=== PATIENT | male | born 1975 | race Caucasian/White ===

== ENCOUNTER 2017-10-20 13:01 | Inpatient (IN) | payer OTHER ==
[2017-10-20 17:46] VITALS: BMI 42.0
--- NOTE | 2017-10-20 23:12 | HP ---
COWS - Scale Resting Pulse: 1= DC 81-100 Sweatin=Flushed/Facial Moisture Restless Observation: 1= Difficult to Sit Still Pupil Size: 1= Pupils >than Normal Bone or Joint Aches: 4=Acute Joint/Muscle Pain Runny Nose/ Eye Tearin= Runny Nose/Eyes GI Upset > 30mins: 1= Stomach Cramp Tremor Observation: 2= Slight Tremor Visible Yawning Observation: 1= 1-2x During Session Anxiety or Irritability: 4=Extreme Anxiety Goose Flesh Skin: 0=Smooth Skin COWS Score: 19 CIWA Score - CIWA Score Nausea/Vomitin Muscle Tremors: 4-Moderate,w/Arms Extend Anxiety: 4-Mod. Anxious/Guarded Agitation: 2 Paroxysmal Sweats: 3 Orientation: 1-Uncertain about Date Tacttile Disturbances: 0-None Auditory Disturbances: 0-None Visual Disturbances: 0-None Headache: 2-Mild CIWA-Ar Total Score: 19 Admission ROS BHS - HPI Chief Complaint: Withdrawal symptoms Allergies/Adverse Reactions: Allergies Allergy/AdvReac Type Severity Reaction Status Date / Time No Known Allergies Allergy Verified 10/20/17 22:48 History of Present Illness: 42 years old male with a long history of opioid and alcohol dependence is seeking admission to detox. Patient has been in previous detox and reports insignificant period of sobriety. He has medical history of seizure, heart murmur, cellulitis and depression. Patient has a history of suicide attempt but denies suicidal ideation at this time. Patient is on methadone 100mg oral at [facility]. Dose is to be verified by nurse. Exam Limitations: Physical Impairment (lower extremities cellulitis) - Ebola screening Have you traveled outside of the country in the last 21 days: No Have you had contact with anyone from an Ebola affected area: No Have you been sick,other than usual withdrawal symptoms: No Do you have a fever: No - Review of Systems Constitutional: Chills, Loss of Appetite, Malaise, Night Sweats, Weakness EENT: reports: Nose Congestion, Sinus Pressure Respiratory: reports: Cough (greenish phlegm) Cardiac: reports: No Symptoms Reported GI: reports: Poor Appetite, Poor Fluid Intake, Abdominal cramping : reports: No Symptoms Reported Musculoskeletal: reports: Back Pain, Joint Pain, Muscle Pain, Muscle Weakness, Neck Pain Integumentary: reports: Bruising, Dryness, Flushing, Sweating Neuro: reports: Headache, Seizure, Tingling, Tremors Endocrine: reports: Flushing, Increased Thirst, Increased Urine Hematology: reports: No Symptoms Reported Psychiatric: reports: Agitated, Anxious, Depressed Other Systems: Reviewed and Negative Patient History - Patient Medical History Hx Anemia: Yes Hx Asthma: No Hx Chronic Obstructive Pulmonary Disease (COPD): No Hx Cancer: No Hx Cardiac Disorders: Yes (Heart murmur) Hx Congestive Heart Failure: No Hx Hypertension: No Hx Hypercholesterolemia: No HX Cerebrovascular Accident: No Hx Seizures: Yes Hx Diabetes: No Hx Gastrointestinal Disorders: No Hx Liver Disease: No Hx Genitourinary Disorders: No Hx Sexually Transmitted Disorders: No Hx Renal Disease (ESRD): No Hx Thyroid Disease: No Hx Human Immunodeficiency Virus (HIV): No Hx Hepatitis C: No Hx Depression: Yes Hx Suicide Attempt: Yes (Attempted suicide at 28 and 31 years. Denies suicidal ideation at this time) Hx Bipolar Disorder: No Hx Schizophrenia: No Other Medical History: ODD and ADD - Patient Surgical History Past Surgical History: Yes Hx Neurologic Surgery: No Hx Cataract Extraction: No Hx Cardiac Surgery: No Hx Lung Surgery: No Hx Abdominal Surgery: No Hx Appendectomy: No Hx Cholecystectomy: No Hx Genitourinary Surgery: No Hx Orthopedic Surgery: Yes (LT.MIDDLE FINGER TORN LIGAMENT) Anesthesia Reaction: No - PPD History Previous Implant?: Yes Documented Results: Negative w/o proof Implanted On Prior R Admission?: No PPD to be Administered?: Yes - Reproductive History Patient is a Female of Child Bearing Age (11 -55 yrs old): No (MALE) - Smoking Cessation Smoking history: Current every day smoker Have you smoked in the past 12 months: Yes Aproximately how many cigarettes per day: 30 Hx Chewing Tobacco Use: No Initiated information on smoking cessation: Yes 'Breaking Loose' booklet given: 10/20/17 - Substance & Tx. History Hx Alcohol Use: Yes Hx Substance Use: Yes Substance Use Type: Alcohol, Heroin Hx Substance Use Treatment: Yes ([facility]) - Substances Abused Alcohol Route: Oral Frequency: Daily Amount used: 3 PINTS Age of first use: 27 Date of Last Use: 10/20/17 Alprazolam (Xanax) Route: Oral Frequency: Daily Amount used: 3-4 STICKS Age of first use: 40 Date of Last Use: 10/19/17 Heroin Route: Injection Frequency: Daily Amount used: 7 BAGS Age of first use: 23 Date of Last Use: 10/20/17 Family Disease History - Family Disease History Family Disease History: Heart Disease: Grandparent (STROKE, EMPHYSEMA- ) , CA: Mother (LUNG, BLOOD CLOT- ), Respiratory: Grandparent, Other: Mother Admission Physical Exam [facility] - Vital Signs Vital Signs: Vital Signs - 24 hr 10/20/17 17:44 Temperature 97.8 F Pulse Rate 91 H Respiratory 18 Rate Blood Pressure 139/80 - Physical General Appearance: Yes: Moderate Distress, Alcohol on Breath, Tremorous, Irritable, Sweating, Anxious HEENTM: Yes: Nasal Congestion, Rhinorrhea Respiratory: Yes: Lungs Clear, Normal Breath Sounds, No Respiratory Distress Neck: Yes: Supple Breast: Yes: Breast Exam Deferred Cardiology: Yes: Regular Rhythm, Regular Rate, S1, S2, Tachycardia Abdominal: Yes: Normal Bowel Sounds, Soft, Protuberent Genitourinary: Yes: Within Normal Limits Musculoskeletal: Yes: Back pain, Joint Stiffness, Muscle Pain, Muscle weakness Extremities: Yes: Tremors, Other (Lower exremities swelling) Neurological: Yes: Alert, Normal Mood/Affect Integumentary: Yes: Dry, Track More[place] (NECK, BOTH HANDS AND LOWER EXTREMITIES) Lymphatic: Yes: Within Normal Limits - Diagnostic (1) Opioid dependence with withdrawal Current Visit: Yes Status: Chronic (2) Sedative, hypnotic or anxiolytic dependence with withdrawal, uncomplicated Current Visit: Yes Status: Chronic (3) Alcohol dependence with uncomplicated withdrawal Current Visit: Yes Status: Chronic (4) Methadone maintenance therapy patient Current Visit: Yes Status: Chronic (5) Heart murmur Current Visit: Yes Status: Chronic (6) Depression Current Visit: Yes Status: Chronic (7) Cellulitis Current Visit: Yes Status: Chronic (8) Seizure Current Visit: Yes Status: Chronic (9) Nicotine dependence Current Visit: Yes Status: Chronic Cleared for Admission [facility] - Detox or Rehab [facility] Level of Care: Medically Managed Detox Regimen/Protocol: Valium [facility] Breath Alcohol Content Breath Alcohol Content: 0.186 Urine Drug Screen - Results Drug Screen Negative: No Urine Drug Screen Results: OPI-Opiates, BZO-Benzodiazepines, MTD-Methadone
[2017-10-20] MEDS ORDERED: NICOTINE POLACRILEX 2 MG GUM BC PRN (23:39)
[2017-10-20] MEDS ORDERED: MAGNESIUM HYDROX 2400MG/30ML ORAL SUSPENSION 30 ML CUP PO PRN (23:39)
[2017-10-20] MEDS ORDERED: guaiFENesin/D-METHORPHAN HB 10 ML UNIT-DOSE CUPS PO PRN (23:39)
[2017-10-20] MEDS ORDERED: P-EPHED 60MG/TRIPROLIDI 2.5MG TABLET PO PRN (23:39)
[2017-10-20] MEDS ORDERED: MAGNESIUM CITRATE 300 ML BOTTLE PO PRN (23:39)
[2017-10-20] MEDS ORDERED: diazePAM 5 MG TABLET PO ONE (23:39)
[2017-10-20] MEDS ORDERED: ACETAMINOPHEN 325 MG TABLET (FP) PO PRN (23:39)
[2017-10-20] MEDS ORDERED: IBUPROFEN 400 MG TABLET (FP) PO PRN (23:39)
[2017-10-20] MEDS ORDERED: LOPERAMIDE HCL 2 MG CAPSULE PO PRN (23:39)
[2017-10-20] MEDS ORDERED: MAG HYDROX/AL HYDROX/SIMETH 30 ML UNIT-DOSE CUP PO PRN (23:39)
[2017-10-20] MEDS ORDERED: MENTHOL/PHENOL 1 EACH UD MM PRN (23:39)
[2017-10-21] MEDS: diazePAM 5 MG TABLET PO SCH ×4 (00:27→21:51)
[2017-10-21] MEDS ORDERED: [UNRECOGNIZED DRUG - CODE] PO (07:45)
[2017-10-21] MEDS ORDERED: METHADONE HCL 10 MG TABLET PO SCH (07:45)
[2017-10-21] MEDS ORDERED: METHADONE HCL 10 MG TABLET ONE (07:50)
[2017-10-21] MEDS ORDERED: METHADONE HCL 40 MG DISPERSABLE TABLET ONE (07:51)
[2017-10-21] MEDS: METHADONE 80 MG, METHADONE 20 MG PO SCH (07:51)
[2017-10-21] MEDS: diazePAM 5 MG TABLET PO PRN ×2 (07:51→12:07)
[2017-10-21 10:49] LABS: ALBUMIN 2.9 g/dl (3.4-5.0); ALK PHOS 98 U/L (45-117); ANION GAP 9 (8-16); BILIRUBIN,TOTAL 0.7 mg/dL (0.2-1.0); BLOOD UREA NITROGEN 6 mg/dL (7-18); CALCIUM 8.3 mg/dL (8.5-10.1); CHLORIDE 99 mmol/L (98-107); CO2 33 mmol/L (21-32); CREATININE 0.8 mg/dL (0.7-1.3); GLUCOSE,RANDOM 77 mg/dL (74-106); POTASSIUM 3.3 mmol/L (3.5-5.1); SGOT/AST 34 U/L (15-37); SGPT/ALT 28 U/L (12-78); SODIUM 141 mmol/L (136-145); TOT PROT 6.6 g/dl (6.4-8.2)
[2017-10-21 10:51] LABS: HEMATOCRIT 35.8 % (35.4-49); MCH 32.6 pg (25.7-33.7); MCHC 33.4 g/dl (32.0-35.9); MEAN CELL VOLUME 97.4 fl (80-96); MEAN PLT VOLUME 7.4 fl (7.5-11.1); PLATELET COUNT 165 K/MM3 (134-434); RBC 3.68 M/mm3 (4.00-5.60); WHITE BLOOD COUNT 3.1 K/mm3 (4.0-10.0)
[2017-10-21] MEDS: FUROSEMIDE 20 MG TABLET (FP) PO SCH (10:56)
[2017-10-21] MEDS: PRENATAL VITAMINS W/ FOLIC ACID TABLET (FP) PO SCH (10:57)
[2017-10-21] MEDS: NICOTINE 14 MG/24 HOURS TOPICAL PATCH TD SCH (10:57)
--- NOTE | 2017-10-21 11:37 | PN ---
[facility] CIWA - CIWA Score Nausea/Vomitin-No Nausea/No Vomiting Muscle Tremors: 4-Moderate,w/Arms Extend Anxiety: 4-Mod. Anxious/Guarded Agitation: 4-Moderately Restless Paroxysmal Sweats: 1-Minimal Palms Moist Orientation: 0-Oriented Tacttile Disturbances: 3-Moderate Itch/Numb/Burn Auditory Disturbances: 0-None Visual Disturbances: 0-None Headache: 0-None Present CIWA-Ar Total Score: 16 S Progress Note (SOAP) Subjective: ANXIETY,IRRITABILITY,SWEATS,FATIGUE,INTERMITTEMT SLEEP. PT IS ON METHADONE MAINTENANCE TREATMENT. Objective: 10/21/17 11:40 Vital Signs Temperature 98.2 F 10/21/17 06:04 Pulse Rate 69 10/21/17 06:04 Respiratory Rate 18 10/21/17 06:04 Blood Pressure 114/65 10/21/17 06:04 O2 Sat by Pulse Oximetry (%) Laboratory Last Values WBC 3.1 K/mm3 (4.0-10.0) L 10/21/17 07:00 RBC 3.68 M/mm3 (4.00-5.60) L 10/21/17 07:00 Hgb 12.0 GM/dL (11.7-16.9) 10/21/17 07:00 Hct 35.8 % (35.4-49) 10/21/17 07:00 MCV 97.4 fl (80-96) H 10/21/17 07:00 MCH 32.6 pg (25.7-33.7) 10/21/17 07:00 MCHC 33.4 g/dl (32.0-35.9) 10/21/17 07:00 RDW 13.0 % (11.9-15.9) 10/21/17 07:00 Plt Count 165 K/MM3 (134-434) 10/21/17 07:00 MPV 7.4 fl (7.5-11.1) L 10/21/17 07:00 Sodium 141 mmol/L (136-145) 10/21/17 07:00 Potassium 3.3 mmol/L (3.5-5.1) L 10/21/17 07:00 Chloride 99 mmol/L (98-107) 10/21/17 07:00 Carbon Dioxide 33 mmol/L (21-32) H 10/21/17 07:00 Anion Gap 9 (8-16) 10/21/17 07:00 BUN 6 mg/dL (7-18) L 10/21/17 07:00 Creatinine 0.8 mg/dL (0.7-1.3) 10/21/17 07:00 Creat Clearance w eGFR > 60 (>60) 10/21/17 07:00 Random Glucose 77 mg/dL (74-106) 10/21/17 07:00 Calcium 8.3 mg/dL (8.5-10.1) L 10/21/17 07:00 Total Bilirubin 0.7 mg/dL (0.2-1.0) 10/21/17 07:00 AST 34 U/L (15-37) 10/21/17 07:00 ALT 28 U/L (12-78) 10/21/17 07:00 Alkaline Phosphatase 98 U/L (45-117) 10/21/17 07:00 Total Protein 6.6 g/dl (6.4-8.2) 10/21/17 07:00 Albumin 2.9 g/dl (3.4-5.0) L 10/21/17 07:00 K+ =3.3 Assessment: 10/21/17 11:40 WITHDRAWAL SX HYPOKALEMIA Plan: CONTINUE DETOX
[2017-10-21] MEDS ORDERED: POTASSIUM CHLORIDE ORAL LIQUID 20 MEQ/15 ML PO ONE (11:45)
--- NOTE | 2017-10-21 12:36 | EKG ---
Test Reason : Blood Pressure : / mmHG Vent. Rate : 079 BPM Atrial Rate : 079 BPM P-R Int : 168 ms QRS Dur : 110 ms QT Int : 402 ms P-R-T Axes : 027 019 035 degrees QTc Int : 460 ms NORMAL SINUS RHYTHM INCOMPLETE RIGHT BUNDLE BRANCH BLOCK BORDERLINE ECG NO PREVIOUS ECGS AVAILABLE Confirmed by SHEILA ALSTON MD ([id number]) on 10/21/2017 12:35:50 PM Referred By: Confirmed By:SHEILA ALSTON MD
--- NOTE | 2017-10-21 12:38 | CONSULT ---
[facility] Psychiatric Consult - Data Date of interview: 10/21/17 Admission source: [facility] Identifying data: Pt. is a 42 year old male, single, without kids, unemployed and homeless. This is patient's first admission to [facility]. Pt. admitted to for Alcohol, benzodiazepines, and heroin dependence. Substance Abuse History: Following information confirmed with Mr. Cruz: Smoking Cessation. Smoking history: Current every day smoker. Have you smoked in the past 12 months: Yes. Aproximately how many cigarettes per day: 30. Hx Chewing Tobacco Use: No. Initiated information on smoking cessation: Yes. ' Breaking Loose' booklet given: 10/20/17. - Substance & Tx. History. Hx Alcohol Use: Yes. Hx Substance Use: Yes. Substance Use Type: Alcohol, Heroin. Hx Substance Use Treatment: Yes ([facility] - Substances Abused. Alcohol. Route: Oral. Frequency: Daily. Amount used: 3 PINTS. Age of first use: 27. Date of Last Use: 10/20/17. Alprazolam (Xanax). Route: Oral. Frequency: Daily. Amount used: 3-4 STICKS. Age of first use: 40. Date of Last Use: 10/19/17. Heroin. Route: Injection. Frequency: Daily. Amount used: 7 BAGS. Age of first use: 23. Date of Last Use: 10/20/17 Medical History: Anemia, Heart murmur and seizures. Psychiatric History: Pt. denies h/o psychiatric hospitalizations. Reports OPC as an adolescent and most recently three years ago. States he has been diagnosed with ADD and MDD. Also self reports a h/o anxiety. Reports taking wellbutrin and prozac over three years ago but stated the medications were not effective. Pt. reports two suicide attempts by overdose at age 27 and 34. Pt. currently denies suicidal and homicidal ideation. Physical/Sexual Abuse/Trauma History: Denies. Mental Status Exam - Mental Status Exam Alert and Oriented to: Time, Place, Person Cognitive Function: Good Patient Appearance: Well Groomed Mood: Sad Affect: Mood Congruent Patient Behavior: Cooperative Speech Pattern: Appropriate Voice Loudness: Normal Thought Process: Goal Oriented Thought Disorder: Not Present Hallucinations: Denies Suicidal Ideation: Denies Homicidal Ideation: Denies Insight/Judgement: Poor Sleep: Poorly Appetite: Fair Muscle strength/Tone: Normal Gait/Station: Normal Psychiatric Findings - Problem List (Waldo 1, 2,3) (1) Sedative, hypnotic or anxiolytic dependence with withdrawal, uncomplicated Current Visit: Yes Status: Acute (2) Alcohol dependence with uncomplicated withdrawal Current Visit: Yes Status: Acute (3) Methadone maintenance therapy patient Current Visit: Yes Status: Chronic (4) Nicotine dependence Current Visit: Yes Status: Chronic Qualifiers: Nicotine product type: cigarettes Substance use status: in withdrawal Qualified Code(s): F17.213 - Nicotine dependence, cigarettes, with withdrawal (5) Opioid dependence with withdrawal Current Visit: Yes Status: Acute (6) MDD (major depressive disorder) Current Visit: No Status: Chronic Comment: Self reports. - Initial Treatment Plan Initial Treatment Plan: Psychoeducation provided. Detoxification in progress. Ambien 10mg qhs prn ordered for insomnia + Vistaril 50mg q6hs ordered for anxiety. Benefits and side effects (sleep walking caused by ambien) discussed. Verbal consent given. Will continue to monitor.
[2017-10-21] MEDS ORDERED: hydrOXYzine PAMOATE 50 MG CAPSULE (FP) PO PRN (18:13)
[2017-10-21] MEDS: POTASSIUM CHLORIDE ORAL LIQUID 20 MEQ/15 ML PO SCH (21:51)
[2017-10-21] MEDS: ZOLPIDEM TARTRATE 10 MG TABLET (PARK CARE ONLY) PO PRN (21:51)
[2017-10-21] MEDS: THIAMINE HCL 100 MG TABLET (FP) PO SCH (21:52)
[2017-10-22] MEDS ORDERED: METHADONE HCL 40 MG DISPERSABLE TABLET ONE (04:28)
[2017-10-22] MEDS ORDERED: METHADONE HCL 10 MG TABLET ONE (04:28)
[2017-10-22] MEDS: diazePAM 5 MG TABLET PO PRN ×2 (05:58→13:31)
[2017-10-22] MEDS: METHADONE 80 MG, METHADONE 20 MG PO SCH (05:58)
[2017-10-22 08:26] LABS: URINE APPEARANCE CLEAR; URINE BILIRUBIN NEGATIVE (NEGATIVE); URINE BLOOD NEGATIVE (NEGATIVE); URINE COLOR LTYELLOW; URINE GLUCOSE (UA) NEGATIVE (NEGATIVE); URINE KETONE NEGATIVE (NEGATIVE); URINE LEUK ESTERASE NEGATIVE (NEGATIVE); URINE NITRITE NEGATIVE (NEGATIVE); URINE PROTEIN NEGATIVE (NEGATIVE); URINE UROBILINOGEN NEGATIVE mg/dL (0.2-1.0)
[2017-10-22] MEDS: POTASSIUM CHLORIDE ORAL LIQUID 20 MEQ/15 ML PO SCH ×2 (10:57→21:43)
[2017-10-22] MEDS: diazePAM 5 MG TABLET PO SCH ×2 (10:58→21:43)
[2017-10-22] MEDS: FUROSEMIDE 20 MG TABLET (FP) PO SCH (10:58)
[2017-10-22] MEDS: NICOTINE 14 MG/24 HOURS TOPICAL PATCH TD SCH (10:59)
[2017-10-22] MEDS: PRENATAL VITAMINS W/ FOLIC ACID TABLET (FP) PO SCH (10:59)
--- NOTE | 2017-10-22 13:41 | PN ---
[facility] CIWA - CIWA Score Nausea/Vomitin-No Nausea/No Vomiting Muscle Tremors: 4-Moderate,w/Arms Extend Anxiety: 4-Mod. Anxious/Guarded Agitation: 4-Moderately Restless Paroxysmal Sweats: 1-Minimal Palms Moist Orientation: 0-Oriented Tacttile Disturbances: 3-Moderate Itch/Numb/Burn Auditory Disturbances: 0-None Visual Disturbances: 0-None Headache: 0-None Present CIWA-Ar Total Score: 16 BHS Progress Note (SOAP) Subjective: ANXIETY,SWEATS,BODY ACHE,FATIGUE. Objective: 10/22/17 13:40 Vital Signs Temperature 96.9 F L 10/22/17 09:46 Pulse Rate 55 L 10/22/17 09:46 Respiratory Rate 18 10/22/17 09:46 Blood Pressure 132/83 10/22/17 09:46 O2 Sat by Pulse Oximetry (%) Laboratory Last Values WBC 3.1 K/mm3 (4.0-10.0) L 10/21/17 07:00 RBC 3.68 M/mm3 (4.00-5.60) L 10/21/17 07:00 Hgb 12.0 GM/dL (11.7-16.9) 10/21/17 07:00 Hct 35.8 % (35.4-49) 10/21/17 07:00 MCV 97.4 fl (80-96) H 10/21/17 07:00 MCH 32.6 pg (25.7-33.7) 10/21/17 07:00 MCHC 33.4 g/dl (32.0-35.9) 10/21/17 07:00 RDW 13.0 % (11.9-15.9) 10/21/17 07:00 Plt Count 165 K/MM3 (134-434) 10/21/17 07:00 MPV 7.4 fl (7.5-11.1) L 10/21/17 07:00 Sodium 141 mmol/L (136-145) 10/21/17 07:00 Potassium 3.3 mmol/L (3.5-5.1) L 10/21/17 07:00 Chloride 99 mmol/L (98-107) 10/21/17 07:00 Carbon Dioxide 33 mmol/L (21-32) H 10/21/17 07:00 Anion Gap 9 (8-16) 10/21/17 07:00 BUN 6 mg/dL (7-18) L 10/21/17 07:00 Creatinine 0.8 mg/dL (0.7-1.3) 10/21/17 07:00 Creat Clearance w eGFR > 60 (>60) 10/21/17 07:00 Random Glucose 77 mg/dL (74-106) 10/21/17 07:00 Calcium 8.3 mg/dL (8.5-10.1) L 10/21/17 07:00 Total Bilirubin 0.7 mg/dL (0.2-1.0) 10/21/17 07:00 AST 34 U/L (15-37) 10/21/17 07:00 ALT 28 U/L (12-78) 10/21/17 07:00 Alkaline Phosphatase 98 U/L (45-117) 10/21/17 07:00 Total Protein 6.6 g/dl (6.4-8.2) 10/21/17 07:00 Albumin 2.9 g/dl (3.4-5.0) L 10/21/17 07:00 Urine Color Ltyellow 10/20/17 23:51 Urine Appearance Clear 10/20/17 23:51 Urine pH 6.0 (5.0-8.0) 10/20/17 23:51 Ur Specific [place] 1.003 (1.001-1.035) 10/20/17 23:51 Urine Protein Negative (NEGATIVE) 10/20/17 23:51 Urine Glucose (UA) Negative (NEGATIVE) 10/20/17 23:51 Urine Ketones Negative (NEGATIVE) 10/20/17 23:51 Urine Blood Negative (NEGATIVE) 10/20/17 23:51 Urine Nitrite Negative (NEGATIVE) 10/20/17 23:51 Urine Bilirubin Negative (NEGATIVE) 10/20/17 23:51 Urine Urobilinogen Negative mg/dL (0.2-1.0) 10/20/17 23:51 Ur Leukocyte Esterase Negative (NEGATIVE) 10/20/17 23:51 RPR Titer Nonreactive (NONREACTIVE) 10/21/17 07:00 Hepatitis C Antibody 0.1 s/co ratio (0.0-0.9) 10/21/17 07:00 K+ SUPPLEMENTED. Assessment: 10/22/17 13:41 WITHDRAWAL SX Plan: CONTINUE DETOX
[2017-10-22] MEDS: THIAMINE HCL 100 MG TABLET (FP) PO SCH (21:43)
[2017-10-22] MEDS: ZOLPIDEM TARTRATE 10 MG TABLET (PARK CARE ONLY) PO PRN (21:45)
[2017-10-23] MEDS ORDERED: METHADONE HCL 10 MG TABLET ONE (04:21)
[2017-10-23] MEDS ORDERED: METHADONE HCL 40 MG DISPERSABLE TABLET ONE (04:21)
[2017-10-23] MEDS: METHADONE 80 MG, METHADONE 20 MG PO SCH (05:45)
[2017-10-23] MEDS: diazePAM 5 MG TABLET PO SCH ×2 (10:29→22:54)
[2017-10-23] MEDS: FUROSEMIDE 20 MG TABLET (FP) PO SCH (10:29)
[2017-10-23] MEDS: PRENATAL VITAMINS W/ FOLIC ACID TABLET (FP) PO SCH (10:29)
[2017-10-23] MEDS: POTASSIUM CHLORIDE ORAL LIQUID 20 MEQ/15 ML PO SCH ×2 (10:30→22:53)
[2017-10-23] MEDS: NICOTINE 14 MG/24 HOURS TOPICAL PATCH TD SCH (11:30)
[2017-10-23] MEDS: diazePAM 5 MG TABLET PO PRN ×2 (12:40→18:03)
--- NOTE | 2017-10-23 16:06 | PN ---
BHS Progress Note (SOAP) Subjective: Tremors, Sweating. Objective: PT. A & O X 2 (UNCERTAIN ABOUT CURRENT DAY/ DATE). NO ACUTE DISTRESS. 10/23/17 16:04 Vital Signs Temperature 96.6 F L 10/23/17 13:12 Pulse Rate 83 10/23/17 13:12 Respiratory Rate 18 10/23/17 13:12 Blood Pressure 134/98 10/23/17 13:12 O2 Sat by Pulse Oximetry (%) Laboratory Tests 10/20/17 10/21/17 10/21/17 23:51 07:00 07:00 WBC 3.1 L RBC 3.68 L Hgb 12.0 Hct 35.8 MCV 97.4 H MCH 32.6 MCHC 33.4 RDW 13.0 Plt Count 165 MPV 7.4 L Sodium 141 Potassium 3.3 L Chloride 99 Carbon Dioxide 33 H Anion Gap 9 BUN 6 L Creatinine 0.8 Creat Clearance w eGFR > 60 Random Glucose 77 Calcium 8.3 L Total Bilirubin 0.7 AST 34 ALT 28 Alkaline Phosphatase 98 Total Protein 6.6 Albumin 2.9 L Urine Color Ltyellow Urine Appearance Clear Urine pH 6.0 Ur Specific [place] 1.003 Urine Protein Negative Urine Glucose (UA) Negative Urine Ketones Negative Urine Blood Negative Urine Nitrite Negative Urine Bilirubin Negative Urine Urobilinogen Negative Ur Leukocyte Esterase Negative RPR Titer Hepatitis C Antibody 10/21/17 10/21/17 07:00 07:00 WBC RBC Hgb Hct MCV MCH MCHC RDW Plt Count MPV Sodium Potassium Chloride Carbon Dioxide Anion Gap BUN Creatinine Creat Clearance w eGFR Random Glucose Calcium Total Bilirubin AST ALT Alkaline Phosphatase Total Protein Albumin Urine Color Urine Appearance Urine pH Ur Specific [place] Urine Protein Urine Glucose (UA) Urine Ketones Urine Blood Urine Nitrite Urine Bilirubin Urine Urobilinogen Ur Leukocyte Esterase RPR Titer Nonreactive Hepatitis C Antibody 0.1 LABS NOTED. Assessment: 10/23/17 16:04 WITHDRAWAL SYMPTOMS. HYPOKALEMIA. 10/23/17 16:06 Plan: CONTINUE DETOX.
[2017-10-23] MEDS: THIAMINE HCL 100 MG TABLET (FP) PO SCH (22:54)
[2017-10-23] MEDS: ZOLPIDEM TARTRATE 10 MG TABLET (PARK CARE ONLY) PO PRN (22:58)
[2017-10-24] MEDS ORDERED: METHADONE HCL 10 MG TABLET ONE (04:24)
[2017-10-24] MEDS ORDERED: METHADONE HCL 40 MG DISPERSABLE TABLET ONE (04:24)
[2017-10-24] MEDS: METHADONE 80 MG, METHADONE 20 MG PO SCH (05:25)
[2017-10-24 06:19] VITALS: BP 109/63; PULSE 71; TEMP 98.6
[2017-10-24] MEDS: PRENATAL VITAMINS W/ FOLIC ACID TABLET (FP) PO SCH (09:32)
[2017-10-24] MEDS: FUROSEMIDE 20 MG TABLET (FP) PO SCH (09:32)
[2017-10-24] MEDS ORDERED: diazePAM 5 MG TABLET PO SCH (10:00)
--- NOTE | 2017-10-24 13:06 | DS ---
[facility] Detox Discharge Summary Admission Date: 10/20/17 Discharge Date: 10/24/17 - History Present History: Alcohol Dependence, Sedative Dependence, MMTP Pertinent Past History: Anemia Seizure disorder - Physical Exam Results Vital Signs: Vital Signs Temperature 98.6 F 10/24/17 06:19 Pulse Rate 71 10/24/17 06:19 Respiratory Rate 20 10/24/17 06:19 Blood Pressure 109/63 10/24/17 06:19 O2 Sat by Pulse Oximetry (%) Pertinent Admission Physical Exam Findings: Withdrawal symptoms Laboratory Tests 10/20/17 10/21/17 10/21/17 23:51 07:00 07:00 WBC 3.1 L RBC 3.68 L Hgb 12.0 Hct 35.8 MCV 97.4 H MCH 32.6 MCHC 33.4 RDW 13.0 Plt Count 165 MPV 7.4 L Sodium 141 Potassium 3.3 L Chloride 99 Carbon Dioxide 33 H Anion Gap 9 BUN 6 L Creatinine 0.8 Creat Clearance w eGFR > 60 Random Glucose 77 Calcium 8.3 L Total Bilirubin 0.7 AST 34 ALT 28 Alkaline Phosphatase 98 Total Protein 6.6 Albumin 2.9 L Urine Color Ltyellow Urine Appearance Clear Urine pH 6.0 Ur Specific [place] 1.003 Urine Protein Negative Urine Glucose (UA) Negative Urine Ketones Negative Urine Blood Negative Urine Nitrite Negative Urine Bilirubin Negative Urine Urobilinogen Negative Ur Leukocyte Esterase Negative RPR Titer Hepatitis C Antibody 10/21/17 10/21/17 07:00 07:00 WBC RBC Hgb Hct MCV MCH MCHC RDW Plt Count MPV Sodium Potassium Chloride Carbon Dioxide Anion Gap BUN Creatinine Creat Clearance w eGFR Random Glucose Calcium Total Bilirubin AST ALT Alkaline Phosphatase Total Protein Albumin Urine Color Urine Appearance Urine pH Ur Specific [place] Urine Protein Urine Glucose (UA) Urine Ketones Urine Blood Urine Nitrite Urine Bilirubin Urine Urobilinogen Ur Leukocyte Esterase RPR Titer Nonreactive Hepatitis C Antibody 0.1 Labs noted: K 3.3 (replenished with K Dur) - Treatment Hospital Course: Detox Protocol Followed, Detoxed Safely, Responded well, Discharged Condition Good - Medication Discharge Medications: Ambulatory Orders Furosemide [Lasix] 20 mg PO DAILY 10/20/17 - Diagnosis (1) Alcohol dependence with uncomplicated withdrawal Status: Acute (2) Hypokalemia Status: Acute (3) Sedative, hypnotic or anxiolytic dependence with withdrawal, uncomplicated Status: Acute (4) MDD (major depressive disorder) Status: Chronic (5) Nicotine dependence Status: Chronic Qualifiers: Nicotine product type: cigarettes Substance use status: in withdrawal Qualified Code(s): F17.213 - Nicotine dependence, cigarettes, with withdrawal (6) Seizure Status: Chronic (7) Methadone maintenance therapy patient Status: Chronic - AMA Did Patient Leave Against Medical Advice: No (F/U with PCP within 1-2 weeks)
== END 2017-10-24 09:25 | disposition home or self-care (01) | DRG 773 ==
LOC: YASAS 13:01 → Y3N 22:09
PROVIDERS: ADMIT Internal Medicine; ATTEND Internal Medicine
PROC: HZ2ZZZZ Detoxification Services for Substance Abuse Treatment (ICD-10-PCS; principal; 2017-10-20)
DX: F10.230 Alcohol dependence with withdrawal, uncomplicated (principal); F11.20 Opioid dependence, uncomplicated; F13.230 Sedative, hypnotic or anxiolytic dependence with withdrawal, uncomplicated; F17.213 Nicotine dependence, cigarettes, with withdrawal; F33.9 Major depressive disorder, recurrent, unspecified; E87.6 Hypokalemia; L03.90 Cellulitis, unspecified; R00.0 Tachycardia, unspecified; R01.1 Cardiac murmur, unspecified; D64.9 Anemia, unspecified; Z86.69 Personal history of other diseases of the nervous system and sense organs; Z91.5 Personal history of self-harm
CPT/HCPCS: 36415; 80053; 81003; 85027; 86593; 86803; 93005; 93010

== ENCOUNTER 2018-03-05 13:19 | Inpatient (IN) | payer OTHER ==
[2018-03-05 19:34] VITALS: BMI 37.8
--- NOTE | 2018-03-05 21:25 | HP ---
CIWA Score - CIWA Score Nausea/Vomitin-No Nausea/No Vomiting Muscle Tremors: 4-Moderate,w/Arms Extend Anxiety: 4-Mod. Anxious/Guarded Agitation: 4-Moderately Restless Paroxysmal Sweats: 5 Orientation: 3-Disoriented Date>2 days Tacttile Disturbances: 0-None Auditory Disturbances: 0-None Visual Disturbances: 0-None Headache: 0-None Present CIWA-Ar Total Score: 20 Admission ROS S - HPI Chief Complaint: C/O WITHDRWAL SX'S. SEEKING DETOX FOR WITHDRAWAL SX'S. Allergies/Adverse Reactions: Allergies Allergy/AdvReac Type Severity Reaction Status Date / Time No Known Allergies Allergy Verified 03/05/18 21:34 History of Present Illness: 42 Y.O. MALE WITH LONG HX/O ALCOHOL AND BENZO, OPIOID DEPENDENCE. KNOWN TO THIS PROGRAM. CLIENT LAST HERE. CLIENT IS ON METHADONE MAINTENANCE 110MG. PRESENTS WITH SEALED TAKE HOME BOTTLE FOR 03/06/2018 BUT UNABLE TO MAKE OUT THE DOSE DUE TO THE LABEL BEING SMEARED. D/W CLIENT UNABLE TO DOSE METHADONE UNTIL DOSE IS VERIFIED BY HIS PROGRAM. SUPERVISOR [employer] AND [employer] ATTEMPTED TO CALL # ON HIS BOTTLE BUT THE ARE ONLY OPEN M-F. CLIENT UPSET ABOUT WAITING ALL DAY AND C/O WORSENING WITHDRAWAL SX'S. D/W CLIENT MAY RETURN TOMORROW AFTER TAKING HIS TAKE HOME. CLIENT REQUEST TO BE ADMITTED DESPITE INABILITY TO DOSE HIM WITH METHADONE. D/W CLIENT I WILL DOSE HIM TOMORROW WITH METHADONE 30 MG PENDING HIS DOSE VERIFICATION ON Wednesday. CLIENT VERBALIZED UNDERSTANDING. HE IS SELF REFERRED. DENIES ANY SIGNIFICANT PERIOD OF CLEAN TIME. REPORTS HX/O DRUG INDUCED SEIZURES, DRUG O.D. X6,. ATTEMPTED SUICIDE 15 YEARS AGO VIA TAKING PILLS. PRESENTLY DENIES SI/HI. PMHX: DENIES PSYCH: DEPRESSION, ADD, Exam Limitations: No Limitations - Ebola screening Have you traveled outside of the country in the last 21 days: No (N) Have you had contact with anyone from an Ebola affected area: No Have you been sick,other than usual withdrawal symptoms: No Do you have a fever: No - Review of Systems Constitutional: Chills, Loss of Appetite, Night Sweats, Changes in sleep EENT: reports: No Symptoms Reported Respiratory: reports: Shortness of Breath Cardiac: reports: Edema (BLE) GI: reports: Poor Fluid Intake : reports: No Symptoms Reported Musculoskeletal: reports: No Symptoms Reported Integumentary: reports: Flushing, Sweating Neuro: reports: Seizure Endocrine: reports: No Symptoms Reported Hematology: reports: No Symptoms Reported Psychiatric: reports: Anxious, Depressed Other Systems: Reviewed and Negative Patient History - Patient Medical History Hx Anemia: Yes Hx Asthma: No Hx Chronic Obstructive Pulmonary Disease (COPD): No Hx Cancer: No Hx Cardiac Disorders: Yes (Heart murmur) Hx Congestive Heart Failure: No Hx Hypertension: No Hx Hypercholesterolemia: No HX Cerebrovascular Accident: No Hx Seizures: Yes Hx Diabetes: No Hx Gastrointestinal Disorders: No Hx Liver Disease: No Hx Genitourinary Disorders: No Hx Sexually Transmitted Disorders: No Hx Renal Disease (ESRD): No Hx Thyroid Disease: No Hx Human Immunodeficiency Virus (HIV): No Hx Hepatitis C: No Hx Depression: Yes Hx Suicide Attempt: Yes (Attempted suicide at 28 and 31 years. Denies suicidal ideation at this time) Hx Bipolar Disorder: No Hx Schizophrenia: No - Patient Surgical History Past Surgical History: Yes Hx Neurologic Surgery: No Hx Cataract Extraction: No Hx Cardiac Surgery: No Hx Lung Surgery: No Hx Breast Surgery: No Hx Breast Biopsy: No Hx Abdominal Surgery: No Hx Appendectomy: No Hx Cholecystectomy: No Hx Genitourinary Surgery: No Hx Section: No Hx Orthopedic Surgery: Yes (LT.MIDDLE FINGER TORN LIGAMENT) Anesthesia Reaction: No - PPD History Previous Implant?: Yes Documented Results: Negative w/o proof Implanted On Prior [facility] Admission?: No Date: 10/23/17 Results: 0MM PPD to be Administered?: No - Smoking Cessation Smoking history: Current every day smoker Have you smoked in the past 12 months: Yes Aproximately how many cigarettes per day: 30 Hx Chewing Tobacco Use: No Initiated information on smoking cessation: Yes 'Breaking Loose' booklet given: 03/05/18 - Substance & Tx. History Hx Alcohol Use: Yes Hx Substance Use: Yes Substance Use Type: Alcohol, Tranquilizers (XANAX) Hx Substance Use Treatment: Yes ([facility]) - Substances Abused RUM Route: Oral Frequency: Daily Amount used: 1-2 LITER Age of first use: 29 Date of Last Use: 03/05/18 XANAX Route: Oral Frequency: 3-6 times per week Amount used: 6MG Age of first use: 39 Date of Last Use: 03/04/18 Family Disease History - Family Disease History Family Disease History: Heart Disease: Grandparent (STROKE, EMPHYSEMA- ) , CA: Mother (LUNG, BLOOD CLOT- ), Respiratory: Grandparent, Other: Mother Admission Physical Exam S - Vital Signs Vital Signs: Vital Signs - 24 hr 03/05/18 19:30 Temperature 97.7 F Pulse Rate 74 Respiratory 18 Rate Blood Pressure 111/67 - Physical General Appearance: Yes: Disheveled, Mild Distress, Intoxicated, Tremorous, Sweating, Anxious, Other (MALODUROUS) HEENTM: Yes: Normal ENT Inspection, Normocephalic, Normal Voice, ARTIE, Other ( DENTURES TONGUE FISSURES) Respiratory: Yes: Chest Non-Tender, Lungs Clear, Normal Breath Sounds, No Respiratory Distress, No Accessory Muscle Use Neck: Yes: No masses,lesions,Nodules, Supple, Trachea in good position Breast: Yes: Breast Exam Deferred Cardiology: Yes: Regular Rhythm, Regular Rate, S1, S2 Abdominal: Yes: Normal Bowel Sounds, Non Tender, Soft, Protuberent Genitourinary: Yes: Within Normal Limits Back: Yes: Normal Inspection Musculoskeletal: Yes: full range of Motion, Gait Steady Extremities: Yes: Normal Range of Motion, Non-Tender, Tremors, Other (DIRTY NAILS) Neurological: Yes: Alert, Disoriented (TO DATE) Integumentary: Yes: Warm, Track [place], Other (DIRTY) Lymphatic: Yes: Within Normal Limits - Diagnostic (1) Alcohol dependence with uncomplicated withdrawal Current Visit: Yes Status: Acute (2) Sedative, hypnotic or anxiolytic dependence with withdrawal, uncomplicated Current Visit: Yes Status: Acute (3) Depression Current Visit: Yes Status: Chronic Qualifiers: Depression Type: unspecified Qualified Code(s): F32.9 - Major depressive disorder, single episode, unspecified (4) Heart murmur Current Visit: Yes Status: Chronic (5) MDD (major depressive disorder) Current Visit: Yes Status: Suspected Comment: Self reports. (6) Methadone maintenance therapy patient Current Visit: Yes Status: Chronic (7) Nicotine dependence Current Visit: Yes Status: Chronic Qualifiers: Nicotine product type: cigarettes Substance use status: in withdrawal Qualified Code(s): F17.213 - Nicotine dependence, cigarettes, with withdrawal (8) Seizure Current Visit: Yes Status: Suspected Cleared for Admission [facility] - Detox or Rehab [facility] Level of Care: Medically Managed Detox Regimen/Protocol: Valium Claeared for Rehab Admission: No [facility] Breath Alcohol Content Breath Alcohol Content: 0.148 Urine Drug Screen - Results Drug Screen Negative: No Urine Drug Screen Results: OPI-Opiates, BZO-Benzodiazepines, MTD-Methadone, OXY- Oxycodone
[2018-03-05] MEDS ORDERED: NICOTINE POLACRILEX 4 MG GUM BC PRN (21:31)
[2018-03-05] MEDS ORDERED: LOPERAMIDE HCL 2 MG CAPSULE PO PRN (21:31)
[2018-03-05] MEDS ORDERED: MAGNESIUM CITRATE 300 ML BOTTLE PO PRN (21:31)
[2018-03-05] MEDS ORDERED: IBUPROFEN 400 MG TABLET (FP) PO PRN (21:31)
[2018-03-05] MEDS ORDERED: MENTHOL/PHENOL 1 EACH UD MM PRN (21:31)
[2018-03-05] MEDS ORDERED: P-EPHED 60MG/TRIPROLIDI 2.5MG TABLET PO PRN (21:31)
[2018-03-05] MEDS ORDERED: MAGNESIUM HYDROX 2400MG/30ML ORAL SUSPENSION 30 ML CUP PO PRN (21:31)
[2018-03-05] MEDS ORDERED: guaiFENesin/D-METHORPHAN HB 10 ML UNIT-DOSE CUPS PO PRN (21:31)
[2018-03-05] MEDS ORDERED: MAG HYDROX/AL HYDROX/SIMETH 30 ML UNIT-DOSE CUP PO PRN (21:31)
[2018-03-05] MEDS ORDERED: ACETAMINOPHEN 325 MG TABLET (FP) PO PRN (21:31)
[2018-03-05] MEDS ORDERED: diazePAM 5 MG TABLET PO ONE (21:45)
[2018-03-05] MEDS ORDERED: MELATONIN 5 MG TABLETS PO PRN (22:00)
[2018-03-05] MEDS: diazePAM 5 MG TABLET PO SCH (22:49)
[2018-03-05] MEDS: hydrOXYzine PAMOATE 50 MG CAPSULE (FP) PO PRN (22:53)
[2018-03-05] MEDS: THIAMINE HCL 100 MG TABLET (FP) PO SCH (22:53)
[2018-03-06] MEDS ORDERED: METHADONE HCL 10 MG TABLET PO ONE (06:00)
[2018-03-06] MEDS: diazePAM 5 MG TABLET PO SCH ×3 (06:22→22:27)
--- NOTE | 2018-03-06 08:09 | CONSULT ---
[facility] Psychiatric Consult - Data Date of interview: 03/06/18 Admission source: Self-referred Identifying data: Mr Cruz is a 42 years old single male, unemployed on public assistance, homeless seeking detox treatment for alcohol and benzodiazepine Substance Abuse History: Reports history of alcohol and xanax use. Refer to addiction counselor's summary for further information Medical History: Significant for heart murmur, a history of benxodiazepine- related seizure, treatment for anemia and orthosurgery for repair of torn ligament left middle finger. Smokes cigarettes 1.5 ppd Psychiatric History: Reports being diagnosed with ADHD and MDD at age 15 but told fha underwriter that his parents was against him taking psychotropic medication. However 5 years ago he was prescribed Wellbutrin and Prozac which he took for only a few months. Claims they were ineffective. Denies previous psychiatric hospitalization but reports 2 suicidal attempts by overdose at age 27 and 34. At present, reports feeling anxious and sleeping poorly Physical/Sexual Abuse/Trauma History: Denies history of emotional, physical or sexual abuse as well as DV relationship Additional Comment: Reports history of 5-6 previous misdemeanor arrests. Denies being on probation Mental Status Exam - Mental Status Exam Alert and Oriented to: Time, Place, Person Cognitive Function: Fair Patient Appearance: Well Groomed Mood: Anxious Patient Behavior: Cooperative Speech Pattern: Clear Voice Loudness: Normal Thought Process: Intact Thought Disorder: Not Present Hallucinations: Denies Suicidal Ideation: Denies Homicidal Ideation: Denies Insight/Judgement: Poor Sleep: Poorly Appetite: Poor Muscle strength/Tone: Normal Gait/Station: Normal Psychiatric Findings - Problem List ([place] 1, 2,3) (1) ADHD (attention deficit hyperactivity disorder) Current Visit: Yes Status: Chronic (2) Substance-induced anxiety disorder Current Visit: Yes Status: Acute (3) Substance-induced sleep disorder Current Visit: Yes Status: Acute (4) Alcohol dependence with uncomplicated withdrawal Current Visit: Yes Status: Acute (5) Sedative, hypnotic or anxiolytic dependence with withdrawal, uncomplicated Current Visit: Yes Status: Acute (6) Opioid dependence on agonist therapy Current Visit: Yes Status: Chronic (7) Nicotine dependence Current Visit: Yes Status: Chronic Qualifiers: Nicotine product type: cigarettes Substance use status: in withdrawal Qualified Code(s): F17.213 - Nicotine dependence, cigarettes, with withdrawal (8) Heart murmur Current Visit: Yes Status: Chronic (9) Seizure Current Visit: Yes Status: Suspected - Initial Treatment Plan Initial Treatment Plan: 1) Start Ambien 10 mg po HS prn for insomnia. 2) Continue inpatient detoxification
[2018-03-06] MEDS: PRENATAL VITAMINS W/ FOLIC ACID TABLET (FP) PO SCH (10:15)
[2018-03-06] MEDS: diazePAM 5 MG TABLET PO PRN ×2 (10:15→19:58)
[2018-03-06] MEDS: NICOTINE 21 MG/24 HOURS TOPICAL PATCH TD SCH (10:15)
[2018-03-06 10:54] LABS: HEMATOCRIT 41.9 % (35.4-49); HEMOGLOBIN 14.3 GM/dL (11.7-16.9); MCH 32.9 pg (25.7-33.7); MCHC 34.2 g/dl (32.0-35.9); MEAN CELL VOLUME 96.3 fl (80-96); MEAN PLT VOLUME 7.9 fl (7.5-11.1); PLATELET COUNT 176 K/MM3 (134-434); RBC 4.35 M/mm3 (4.00-5.60); WHITE BLOOD COUNT 2.6 K/mm3 (4.0-10.0)
[2018-03-06 10:56] LABS: URINE APPEARANCE CLEAR; URINE BILIRUBIN NEGATIVE (<2.0 mg/dL); URINE BLOOD NEGATIVE (NEGATIVE); URINE COLOR AMBER; URINE GLUCOSE (UA) NEGATIVE (NEGATIVE); URINE KETONE NEGATIVE (NEGATIVE); URINE LEUK ESTERASE NEGATIVE (NEGATIVE); URINE NITRITE NEGATIVE (NEGATIVE); URINE PROTEIN NEGATIVE (NEGATIVE); URINE UROBILINOGEN 4.0 E.U/dl mg/dL (0.2-1.0)
[2018-03-06 11:03] LABS: ALBUMIN 3.2 g/dl (3.4-5.0); ALK PHOS 158 U/L (45-117); ANION GAP 8 (8-16); BILIRUBIN,TOTAL 0.8 mg/dL (0.2-1.0); BLOOD UREA NITROGEN 8 mg/dL (7-18); CALCIUM 8.4 mg/dL (8.5-10.1); CHLORIDE 103 mmol/L (98-107); CO2 30 mmol/L (21-32); CREATININE 0.8 mg/dL (0.7-1.3); GLUCOSE,RANDOM 90 mg/dL (74-106); POTASSIUM 3.4 mmol/L (3.5-5.1); SGOT/AST 62 U/L (15-37); SGPT/ALT 56 U/L (12-78); SODIUM 141 mmol/L (136-145); TOT PROT 6.8 g/dl (6.4-8.2)
--- NOTE | 2018-03-06 16:17 | PN ---
S CIWA - CIWA Score Nausea/Vomitin Muscle Tremors: 3 Anxiety: 3 Agitation: 1-Slight > Activity Paroxysmal Sweats: 3 Orientation: 2-Disoriented Date<2 days Tacttile Disturbances: 0-None Auditory Disturbances: 0-None Visual Disturbances: 2-Mild Sensitivity Headache: 0-None Present CIWA-Ar Total Score: 17 BHS Progress Note (SOAP) Subjective: Fatigue, Nausea, Sweating, Tremors. Objective: PATIENT A & O X 2 (UNCERTAIN ABOUT CURRENT DAY / DATE). PATIENT OBSERVED AMBULATING ON UNIT. NO ACUTE DISTRESS. 03/06/18 16:14 Vital Signs Temperature 98.0 F 03/06/18 13:31 Pulse Rate 68 03/06/18 15:49 Respiratory Rate 18 03/06/18 14:00 Blood Pressure 129/78 03/06/18 13:31 O2 Sat by Pulse Oximetry (%) Laboratory Tests 03/06/18 03/06/18 03/06/18 07:40 07:40 07:40 WBC 2.6 L RBC 4.35 Hgb 14.3 D Hct 41.9 D MCV 96.3 H MCH 32.9 MCHC 34.2 RDW 13.0 Plt Count 176 MPV 7.9 Sodium 141 Potassium 3.4 L Chloride 103 Carbon Dioxide 30 Anion Gap 8 BUN 8 D Creatinine 0.8 Creat Clearance w eGFR > 60 Random Glucose 90 Calcium 8.4 L Total Bilirubin 0.8 AST 62 H D ALT 56 D Alkaline Phosphatase 158 H D Total Protein 6.8 Albumin 3.2 L Urine Color Urine Appearance Urine pH Ur Specific [place] Urine Protein Urine Glucose (UA) Urine Ketones Urine Blood Urine Nitrite Urine Bilirubin Urine Urobilinogen Ur Leukocyte Esterase RPR Titer Nonreactive 03/06/18 08:15 WBC RBC Hgb Hct MCV MCH MCHC RDW Plt Count MPV Sodium Potassium Chloride Carbon Dioxide Anion Gap BUN Creatinine Creat Clearance w eGFR Random Glucose Calcium Total Bilirubin AST ALT Alkaline Phosphatase Total Protein Albumin Urine Color Nga Urine Appearance Clear Urine pH 5.0 Ur Specific [place] 1.012 Urine Protein Negative Urine Glucose (UA) Negative Urine Ketones Negative Urine Blood Negative Urine Nitrite Negative Urine Bilirubin Negative Urine Urobilinogen 4.0 e.u/dl Ur Leukocyte Esterase Negative RPR Titer LABS NOTED. Assessment: 03/06/18 16:14 WITHDRAWAL SYMPTOMS. HYPOKALEMIA. 03/06/18 16:16 Plan: CONTINUE DETOX. K-DUR, 20 MEQ PO BID. INCREASE DAILY PO FLUID INTAKE.
[2018-03-06] MEDS: POTASSIUM CHLORIDE TABS 20 MEQ TABLET.ER (FP) PO SCH (17:48)
[2018-03-06] MEDS: hydrOXYzine PAMOATE 50 MG CAPSULE (FP) PO PRN (19:57)
[2018-03-06] MEDS: THIAMINE HCL 100 MG TABLET (FP) PO SCH (22:27)
[2018-03-06] MEDS: ZOLPIDEM TARTRATE 10 MG TABLET (PARK CARE ONLY) PO PRN (22:27)
--- NOTE | 2018-03-06 22:41 | EKG ---
Test Reason : Blood Pressure : / mmHG Vent. Rate : 074 BPM Atrial Rate : 074 BPM P-R Int : 180 ms QRS Dur : 104 ms QT Int : 414 ms P-R-T Axes : 053 000 036 degrees QTc Int : 459 ms NORMAL SINUS RHYTHM NORMAL ECG WHEN COMPARED WITH ECG OF 21-OCT-2017 01:34, NO SIGNIFICANT CHANGE WAS FOUND Confirmed by VAISHALI HEATON MD ([id number]) on 03/06/2018 10:41:12 PM Referred By: Confirmed By:VAISHALI HEATON MD
[2018-03-07] MEDS ORDERED: METHADONE HCL 10 MG TABLET PO ONE (09:06)
[2018-03-07] MEDS ORDERED: METHADONE 80 MG, METHADONE 30 MG PO ONE (09:30)
[2018-03-07] MEDS ORDERED: METHADONE HCL 10 MG TABLET ONE (10:00)
[2018-03-07] MEDS ORDERED: METHADONE HCL 40 MG DISPERSABLE TABLET ONE (10:01)
[2018-03-07] MEDS: PRENATAL VITAMINS W/ FOLIC ACID TABLET (FP) PO SCH (10:15)
[2018-03-07] MEDS: diazePAM 5 MG TABLET PO SCH ×2 (10:15→22:05)
[2018-03-07] MEDS: POTASSIUM CHLORIDE TABS 20 MEQ TABLET.ER (FP) PO SCH ×2 (10:15→17:36)
[2018-03-07] MEDS: NICOTINE 21 MG/24 HOURS TOPICAL PATCH TD SCH (10:15)
--- NOTE | 2018-03-07 10:37 | PN ---
[facility] CIWA - CIWA Score Nausea/Vomitin-No Nausea/No Vomiting Muscle Tremors: 4-Moderate,w/Arms Extend Anxiety: 4-Mod. Anxious/Guarded Agitation: 4-Moderately Restless Paroxysmal Sweats: 1-Minimal Palms Moist Orientation: 0-Oriented Tacttile Disturbances: 0-None Auditory Disturbances: 0-None Visual Disturbances: 0-None Headache: 0-None Present CIWA-Ar Total Score: 13 S Progress Note (SOAP) Subjective: ANXIETY,IRRITABILITY. PT ON METHADONE MAINTENANCE AND WANTS HIS METHADONE. PT STATES HE IS ANXIOUS BECAUSE WAS GIVEN 30 MG METHADONE OVER THE WEEKEND PENDING VERIFICATION TODAY. DOSE HAS BEEN VERIFIED AND ORDERED. Objective: 03/07/18 10:35 Vital Signs 03/07/18 03/07/18 03/07/18 03:30 06:43 09:06 Temperature 98.6 F 98.4 F Pulse Rate 53 L 44 L Respiratory 18 18 18 Rate Blood Pressure 123/85 118/71 Laboratory Tests 03/06/18 03/06/18 03/06/18 07:40 07:40 07:40 WBC 2.6 L RBC 4.35 Hgb 14.3 D Hct 41.9 D MCV 96.3 H MCH 32.9 MCHC 34.2 RDW 13.0 Plt Count 176 MPV 7.9 Sodium 141 Potassium 3.4 L Chloride 103 Carbon Dioxide 30 Anion Gap 8 BUN 8 D Creatinine 0.8 Creat Clearance w eGFR > 60 Random Glucose 90 Calcium 8.4 L Total Bilirubin 0.8 AST 62 H D ALT 56 D Alkaline Phosphatase 158 H D Total Protein 6.8 Albumin 3.2 L Urine Color Urine Appearance Urine pH Ur Specific [place] Urine Protein Urine Glucose (UA) Urine Ketones Urine Blood Urine Nitrite Urine Bilirubin Urine Urobilinogen Ur Leukocyte Esterase RPR Titer Nonreactive 03/06/18 08:15 WBC RBC Hgb Hct MCV MCH MCHC RDW Plt Count MPV Sodium Potassium Chloride Carbon Dioxide Anion Gap BUN Creatinine Creat Clearance w eGFR Random Glucose Calcium Total Bilirubin AST ALT Alkaline Phosphatase Total Protein Albumin Urine Color Nga Urine Appearance Clear Urine pH 5.0 Ur Specific [place] 1.012 Urine Protein Negative Urine Glucose (UA) Negative Urine Ketones Negative Urine Blood Negative Urine Nitrite Negative Urine Bilirubin Negative Urine Urobilinogen 4.0 e.u/dl Ur Leukocyte Esterase Negative RPR Titer 03/07/18 10:36 Assessment: 03/07/18 10:36 WITHDRAWAL SX Plan: CONTINUE DETOX INCREASE PO FLUIDS.
[2018-03-07] MEDS: diazePAM 5 MG TABLET PO PRN (15:19)
[2018-03-07] MEDS: THIAMINE HCL 100 MG TABLET (FP) PO SCH (22:04)
[2018-03-07] MEDS: ZOLPIDEM TARTRATE 10 MG TABLET (PARK CARE ONLY) PO PRN (22:05)
[2018-03-08] MEDS: diazePAM 5 MG TABLET PO PRN ×2 (02:33→18:06)
[2018-03-08] MEDS ORDERED: METHADONE HCL 10 MG TABLET ONE (04:29)
[2018-03-08] MEDS ORDERED: METHADONE HCL 40 MG DISPERSABLE TABLET ONE (04:29)
[2018-03-08] MEDS ORDERED: METHADONE HCL 10 MG TABLET PO SCH (06:00)
[2018-03-08] MEDS: METHADONE 80 MG, METHADONE 30 MG PO SCH (06:02)
[2018-03-08] MEDS: PRENATAL VITAMINS W/ FOLIC ACID TABLET (FP) PO SCH (10:17)
[2018-03-08] MEDS: POTASSIUM CHLORIDE TABS 20 MEQ TABLET.ER (FP) PO SCH ×2 (10:17→17:16)
[2018-03-08] MEDS: NICOTINE 21 MG/24 HOURS TOPICAL PATCH TD SCH (10:18)
[2018-03-08] MEDS: diazePAM 5 MG TABLET PO SCH ×2 (10:18→22:15)
--- NOTE | 2018-03-08 12:37 | PN ---
BHS Progress Note (SOAP) Subjective: ANXIETY,SWEATS,FATIGUE. PT MOSTLY IN BED. ENCOURAGED TO GET OOB AND AMBULATE NEEDED. Objective: 03/08/18 12:36 Vital Signs 03/08/18 03/08/18 05:51 09:23 Temperature 99.4 F 97.4 F L Pulse Rate 47 L 50 L Respiratory 18 18 Rate Blood Pressure 118/68 121/71 Laboratory Tests 03/06/18 03/06/18 03/06/18 07:40 07:40 07:40 WBC 2.6 L RBC 4.35 Hgb 14.3 D Hct 41.9 D MCV 96.3 H MCH 32.9 MCHC 34.2 RDW 13.0 Plt Count 176 MPV 7.9 Sodium 141 Potassium 3.4 L Chloride 103 Carbon Dioxide 30 Anion Gap 8 BUN 8 D Creatinine 0.8 Creat Clearance w eGFR > 60 Random Glucose 90 Calcium 8.4 L Total Bilirubin 0.8 AST 62 H D ALT 56 D Alkaline Phosphatase 158 H D Total Protein 6.8 Albumin 3.2 L Urine Color Urine Appearance Urine pH Ur Specific [place] Urine Protein Urine Glucose (UA) Urine Ketones Urine Blood Urine Nitrite Urine Bilirubin Urine Urobilinogen Ur Leukocyte Esterase RPR Titer Nonreactive 03/06/18 08:15 WBC RBC Hgb Hct MCV MCH MCHC RDW Plt Count MPV Sodium Potassium Chloride Carbon Dioxide Anion Gap BUN Creatinine Creat Clearance w eGFR Random Glucose Calcium Total Bilirubin AST ALT Alkaline Phosphatase Total Protein Albumin Urine Color Nga Urine Appearance Clear Urine pH 5.0 Ur Specific [place] 1.012 Urine Protein Negative Urine Glucose (UA) Negative Urine Ketones Negative Urine Blood Negative Urine Nitrite Negative Urine Bilirubin Negative Urine Urobilinogen 4.0 e.u/dl Ur Leukocyte Esterase Negative RPR Titer Assessment: 03/08/18 12:36 WITHDRAWAL SX Plan: CONTINUE DETOX ENCOURAGE OOB
[2018-03-08] MEDS: THIAMINE HCL 100 MG TABLET (FP) PO SCH (22:15)
[2018-03-08] MEDS: ZOLPIDEM TARTRATE 10 MG TABLET (PARK CARE ONLY) PO PRN (22:16)
[2018-03-09] MEDS ORDERED: METHADONE HCL 10 MG TABLET ONE (04:55)
[2018-03-09] MEDS ORDERED: METHADONE HCL 40 MG DISPERSABLE TABLET ONE (04:56)
[2018-03-09] MEDS: METHADONE 80 MG, METHADONE 30 MG PO SCH (05:46)
[2018-03-09 06:47] VITALS: BP 95/63; PULSE 52; TEMP 98.1
--- NOTE | 2018-03-09 08:29 | DS ---
[facility] Detox Discharge Summary Admission Date: 03/05/18 Discharge Date: 03/09/18 - History Present History: Alcohol Dependence Additional Comments: DETOX COMPLETED. PT TO FOLLOW UP AT HIS PRIMARY [facility] CLINIC. Pertinent Past History: PLEASE SEE DX BELOW - Physical Exam Results Vital Signs: Vital Signs Temperature 98.1 F 03/09/18 06:46 Pulse Rate 52 L 03/09/18 06:46 Respiratory Rate 18 03/09/18 06:46 Blood Pressure 95/63 03/09/18 06:46 O2 Sat by Pulse Oximetry (%) Pertinent Admission Physical Exam Findings: WITHDRAWAL SX Laboratory Tests 03/06/18 03/06/18 03/06/18 07:40 07:40 07:40 WBC 2.6 L RBC 4.35 Hgb 14.3 D Hct 41.9 D MCV 96.3 H MCH 32.9 MCHC 34.2 RDW 13.0 Plt Count 176 MPV 7.9 Sodium 141 Potassium 3.4 L Chloride 103 Carbon Dioxide 30 Anion Gap 8 BUN 8 D Creatinine 0.8 Creat Clearance w eGFR > 60 Random Glucose 90 Calcium 8.4 L Total Bilirubin 0.8 AST 62 H D ALT 56 D Alkaline Phosphatase 158 H D Total Protein 6.8 Albumin 3.2 L Urine Color Urine Appearance Urine pH Ur Specific [place] Urine Protein Urine Glucose (UA) Urine Ketones Urine Blood Urine Nitrite Urine Bilirubin Urine Urobilinogen Ur Leukocyte Esterase RPR Titer Nonreactive 03/06/18 08:15 WBC RBC Hgb Hct MCV MCH MCHC RDW Plt Count MPV Sodium Potassium Chloride Carbon Dioxide Anion Gap BUN Creatinine Creat Clearance w eGFR Random Glucose Calcium Total Bilirubin AST ALT Alkaline Phosphatase Total Protein Albumin Urine Color Nga Urine Appearance Clear Urine pH 5.0 Ur Specific [place] 1.012 Urine Protein Negative Urine Glucose (UA) Negative Urine Ketones Negative Urine Blood Negative Urine Nitrite Negative Urine Bilirubin Negative Urine Urobilinogen 4.0 e.u/dl Ur Leukocyte Esterase Negative RPR Titer - Treatment Hospital Course: Detox Protocol Followed, Detoxed Safely, Responded well, Discharged Condition Good - Medication Discharge Medications: Ambulatory Orders NK [No Known Home Medication] 08/21/14 Furosemide [Lasix] 20 mg PO DAILY 10/20/17 - Diagnosis (1) Alcohol dependence with uncomplicated withdrawal Status: Acute (2) Sedative, hypnotic or anxiolytic dependence with withdrawal, uncomplicated Status: Acute (3) Methadone maintenance therapy patient Status: Chronic (4) Seizure Status: Suspected (5) Nicotine dependence Status: Acute Qualifiers: Nicotine product type: cigarettes Substance use status: in withdrawal Qualified Code(s): F17.213 - Nicotine dependence, cigarettes, with withdrawal - AMA Did Patient Leave Against Medical Advice: No
--- NOTE | 2018-03-09 08:31 | PN ---
BHS Progress Note (SOAP) Subjective: DETOX COMPLETED. Objective: 03/09/18 08:30 Vital Signs 03/09/18 03/09/18 03:30 06:46 Temperature 98.1 F Pulse Rate 52 L Respiratory 18 18 Rate Blood Pressure 95/63 Laboratory Tests 03/06/18 03/06/18 03/06/18 07:40 07:40 07:40 WBC 2.6 L RBC 4.35 Hgb 14.3 D Hct 41.9 D MCV 96.3 H MCH 32.9 MCHC 34.2 RDW 13.0 Plt Count 176 MPV 7.9 Sodium 141 Potassium 3.4 L Chloride 103 Carbon Dioxide 30 Anion Gap 8 BUN 8 D Creatinine 0.8 Creat Clearance w eGFR > 60 Random Glucose 90 Calcium 8.4 L Total Bilirubin 0.8 AST 62 H D ALT 56 D Alkaline Phosphatase 158 H D Total Protein 6.8 Albumin 3.2 L Urine Color Urine Appearance Urine pH Ur Specific [place] Urine Protein Urine Glucose (UA) Urine Ketones Urine Blood Urine Nitrite Urine Bilirubin Urine Urobilinogen Ur Leukocyte Esterase RPR Titer Nonreactive 03/06/18 08:15 WBC RBC Hgb Hct MCV MCH MCHC RDW Plt Count MPV Sodium Potassium Chloride Carbon Dioxide Anion Gap BUN Creatinine Creat Clearance w eGFR Random Glucose Calcium Total Bilirubin AST ALT Alkaline Phosphatase Total Protein Albumin Urine Color Nga Urine Appearance Clear Urine pH 5.0 Ur Specific [place] 1.012 Urine Protein Negative Urine Glucose (UA) Negative Urine Ketones Negative Urine Blood Negative Urine Nitrite Negative Urine Bilirubin Negative Urine Urobilinogen 4.0 e.u/dl Ur Leukocyte Esterase Negative RPR Titer Assessment: 03/09/18 08:30 MEDICALLY STABLE Plan: PT D/C'D TODAY
[2018-03-09] MEDS ORDERED: diazePAM 5 MG TABLET PO SCH (10:00)
== END 2018-03-09 07:30 | disposition home or self-care (01) | DRG 773 ==
LOC: YASAS 13:19 → Y3N 21:33
PROVIDERS: ADMIT Surgery; ATTEND Surgery
PROC: HZ2ZZZZ Detoxification Services for Substance Abuse Treatment (ICD-10-PCS; principal; 2018-03-05)
DX: F11.20 Opioid dependence, uncomplicated (principal); F13.230 Sedative, hypnotic or anxiolytic dependence with withdrawal, uncomplicated; F10.230 Alcohol dependence with withdrawal, uncomplicated; F17.213 Nicotine dependence, cigarettes, with withdrawal; F33.9 Major depressive disorder, recurrent, unspecified; F19.282 Other psychoactive substance dependence with psychoactive substance-induced sleep disorder; F19.24 Other psychoactive substance dependence with psychoactive substance-induced mood disorder; F90.9 Attention-deficit hyperactivity disorder, unspecified type; E87.6 Hypokalemia; R56.9 Unspecified convulsions; R01.1 Cardiac murmur, unspecified
CPT/HCPCS: 36415; 80053; 81003; 85027; 86593; 93005; 93010

== ENCOUNTER 2018-04-25 14:02 | Inpatient (IN) | payer OTHER ==
[2018-04-25 14:42] VITALS: BMI 36.9
[2018-04-25] MEDS ORDERED: guaiFENesin/D-METHORPHAN HB 10 ML UNIT-DOSE CUPS PO PRN (17:01)
[2018-04-25] MEDS ORDERED: MAGNESIUM CITRATE 300 ML BOTTLE PO PRN (17:01)
[2018-04-25] MEDS ORDERED: NICOTINE POLACRILEX 2 MG GUM BC PRN (17:01)
[2018-04-25] MEDS ORDERED: IBUPROFEN 400 MG TABLET (FP) PO PRN (17:01)
[2018-04-25] MEDS ORDERED: hydrOXYzine PAMOATE 50 MG CAPSULE (FP) PO PRN (17:01)
[2018-04-25] MEDS ORDERED: MENTHOL/PHENOL 1 EACH UD MM PRN (17:01)
[2018-04-25] MEDS ORDERED: LOPERAMIDE HCL 2 MG CAPSULE PO PRN (17:01)
[2018-04-25] MEDS ORDERED: MAGNESIUM HYDROX 2400MG/30ML ORAL SUSPENSION 30 ML CUP PO PRN (17:01)
[2018-04-25] MEDS ORDERED: MAG HYDROX/AL HYDROX/SIMETH 30 ML UNIT-DOSE CUP PO PRN (17:01)
[2018-04-25] MEDS ORDERED: P-EPHED 60MG/TRIPROLIDI 2.5MG TABLET PO PRN (17:01)
[2018-04-25] MEDS ORDERED: diazePAM 5 MG TABLET PO ONE (17:01)
[2018-04-25] MEDS ORDERED: ACETAMINOPHEN 325 MG TABLET (FP) PO PRN (17:01)
--- NOTE | 2018-04-25 17:05 | HP ---
CIWA Score - CIWA Score Nausea/Vomitin-Mild Nausea/No Vomiting Muscle Tremors: 2 Anxiety: 3 Agitation: 3 Paroxysmal Sweats: 3 Orientation: 1-Uncertain about Date (no distress) Tacttile Disturbances: 2-Mild Itch/Numbness/Burn (both hands) Auditory Disturbances: 0-None Visual Disturbances: 0-None Headache: 0-None Present CIWA-Ar Total Score: 15 Admission ROS BHS - HPI Chief Complaint: ALCOHOL AND XANAX WITHDRAWAL SYMPTOMS Allergies/Adverse Reactions: Allergies Allergy/AdvReac Type Severity Reaction Status Date / Time No Known Allergies Allergy Verified 04/25/18 16:57 History of Present Illness: 42 yo male with hx of nicotine, xanax and alcohol dependence is here seeking detox. Patient currently linked to [facility] at [place] on methadone 110 mg qd, last medicated 04/24/18, dose pending verification, patient aware and verbalizes understanding. Hx of drug induced seizure, depression and anxiety . Denies suicidal / homicidal ideation. Reports hx of suicide attempt x 2, last attempt 10 years ago. Last detox [facility] 03/05/18 -03/09/18. Reports no significant period of sobriety. Exam Limitations: No Limitations - Ebola screening Have you traveled outside of the country in the last 21 days: No (N) Have you had contact with anyone from an Ebola affected area: No Have you been sick,other than usual withdrawal symptoms: No Do you have a fever: No - Review of Systems Constitutional: Chills, Diaphoresis EENT: reports: No Symptoms Reported Respiratory: reports: No Symptoms reported Cardiac: reports: No Symptoms Reported GI: reports: No Symptoms Reported : reports: Hematuria (a week ago, did not seek medical attention, reports it relsolved) Musculoskeletal: reports: Back Pain Integumentary: reports: No Symptoms Reported Neuro: reports: See HPI Endocrine: reports: No Symptoms Reported Hematology: reports: No Symptoms Reported Psychiatric: reports: Orientated x3, Anxious Other Systems: Reviewed and Negative Patient History - Patient Medical History Hx Anemia: Yes Hx Asthma: No Hx Chronic Obstructive Pulmonary Disease (COPD): No Hx Cancer: No Hx Cardiac Disorders: No Hx Congestive Heart Failure: No Hx Hypertension: No Hx Hypercholesterolemia: No Hx Pacemaker: No HX Cerebrovascular Accident: No Hx Seizures: Yes (drug related-last episode was 4 mos. ago) Hx Dementia: No Hx Diabetes: No Hx Gastrointestinal Disorders: No Hx Liver Disease: No Hx Genitourinary Disorders: No Hx Sexually Transmitted Disorders: No Hx Renal Disease (ESRD): No Hx Thyroid Disease: No Hx Human Immunodeficiency Virus (HIV): No Hx Hepatitis C: No Hx Depression: Yes Hx Suicide Attempt: Yes (heroin overdose 1 1/2 years ago) Hx Bipolar Disorder: No Hx Schizophrenia: No - Patient Surgical History Past Surgical History: Yes Hx Neurologic Surgery: No Hx Cataract Extraction: No Hx Cardiac Surgery: No Hx Lung Surgery: No Hx Breast Surgery: No Hx Breast Biopsy: No Hx Abdominal Surgery: No Hx Appendectomy: No Hx Cholecystectomy: No Hx Genitourinary Surgery: No Hx Section: Yes (left ring finger) Hx Orthopedic Surgery: No Anesthesia Reaction: No - PPD History Date: 08/23/14 Results: 0MM - Smoking Cessation Smoking history: Current every day smoker Have you smoked in the past 12 months: Yes Aproximately how many cigarettes per day: 20 Cigars Per Day: 0 Hx Chewing Tobacco Use: No Initiated information on smoking cessation: Yes 'Breaking Loose' booklet given: 04/25/18 - Substance & Tx. History Hx Alcohol Use: Yes Hx Substance Use: Yes Substance Use Type: Alcohol, Tranquilizers Hx Substance Use Treatment: Yes ([facility] 03/05/18 -03/09/18 ) - Substances Abused Alcohol Route: Oral Frequency: Daily Amount used: 2-3 pints rum Age of first use: 32 Date of Last Use: 04/25/18 Alprazolam (Xanax) Route: Oral Frequency: Daily Amount used: 4-6mg Age of first use: 25 Date of Last Use: 04/24/18 Family Disease History - Family Disease History Family Disease History: Heart Disease: Grandparent (STROKE, EMPHYSEMA- ) , CA: Mother (LUNG, BLOOD CLOT- ), Respiratory: Grandparent, Other: Mother Admission Physical Exam BHS - Vital Signs Vital Signs: Vital Signs - 24 hr 04/25/18 14:39 Temperature 97.9 F Pulse Rate 71 Respiratory 20 Rate Blood Pressure 118/81 - Physical General Appearance: Yes: Disheveled, Mild Distress, Sweating, Anxious HEENTM: Yes: EOMI, Hearing grossly Normal, Normal ENT Inspection, Normocephalic , Normal Voice, ARTIE, Pharynx Normal, Tm's normal Respiratory: Yes: Chest Non-Tender, Lungs Clear, Normal Breath Sounds, No Respiratory Distress, No Accessory Muscle Use Neck: Yes: Within Normal Limits Breast: Yes: Breast Exam Deferred, Surgical Scar Cardiology: Yes: Regular Rhythm, Murmur Abdominal: Yes: Normal Bowel Sounds, Non Tender, Soft, Protuberent Genitourinary: Yes: Within Normal Limits Back: Yes: Normal Inspection Musculoskeletal: Yes: full range of Motion, Gait Steady, Pelvis Stable Extremities: Yes: Normal Capillary Refill, Normal Inspection, Normal Range of Motion, Non-Tender Neurological: Yes: clinical social work aide II-XII NML intact, Fully Oriented, Alert, Motor Strength 5/5, Depressed Affect Integumentary: Yes: Normal Color, Warm, Diaphoresis Lymphatic: Yes: Within Normal Limits - Diagnostic (1) Alcohol dependence with uncomplicated withdrawal Current Visit: Yes Status: Acute (2) Nicotine dependence Current Visit: Yes Status: Acute Qualifiers: Nicotine product type: cigarettes Substance use status: in withdrawal Qualified Code(s): F17.213 - Nicotine dependence, cigarettes, with withdrawal (3) Sedative, hypnotic or anxiolytic dependence with withdrawal, uncomplicated Current Visit: Yes Status: Acute (4) Heart murmur Current Visit: Yes Status: Chronic (5) Opioid dependence on agonist therapy Current Visit: Yes Status: Chronic Comment: on Methadone 110 mg, dose pending verification Cleared for Admission [facility] - Detox or Rehab [facility] Level of Care: Medically Managed Detox Regimen/Protocol: Valium [facility] Breath Alcohol Content Breath Alcohol Content: 0.101 Urine Drug Screen - Results Drug Screen Negative: No Urine Drug Screen Results: OPI-Opiates, BZO-Benzodiazepines, MTD-Methadone
[2018-04-25 21:39] LABS: URINE APPEARANCE CLEAR; URINE BILIRUBIN NEGATIVE (<2.0 mg/dL); URINE COLOR STRAW; URINE GLUCOSE (UA) NEGATIVE (NEGATIVE); URINE KETONE NEGATIVE (NEGATIVE); URINE LEUK ESTERASE NEGATIVE (NEGATIVE); URINE NITRITE NEGATIVE (NEGATIVE); URINE PROTEIN NEGATIVE (NEGATIVE); URINE UROBILINOGEN NEGATIVE mg/dL (0.2-1.0)
[2018-04-25] MEDS ORDERED: MELATONIN 5 MG TABLETS PO PRN (22:00)
[2018-04-25] MEDS: THIAMINE HCL 100 MG TABLET (FP) PO SCH (22:19)
[2018-04-25] MEDS: diazePAM 5 MG TABLET PO SCH (22:19)
[2018-04-26] MEDS: diazePAM 5 MG TABLET PO PRN ×3 (00:25→18:17)
[2018-04-26] MEDS: diazePAM 5 MG TABLET PO SCH ×3 (05:58→22:47)
[2018-04-26] MEDS: PRENATAL VITAMINS W/ FOLIC ACID TABLET (FP) PO SCH (09:36)
[2018-04-26] MEDS: NICOTINE 21 MG/24 HOURS TOPICAL PATCH TD SCH (09:37)
[2018-04-26] MEDS ORDERED: METHADONE HCL 10 MG TABLET PO SCH (09:45)
[2018-04-26 09:52] LABS: HEMATOCRIT 41.7 % (35.4-49); HEMOGLOBIN 14.4 GM/dL (11.7-16.9); MCH 33.5 pg (25.7-33.7); MCHC 34.6 g/dl (32.0-35.9); MEAN CELL VOLUME 96.9 fl (80-96); MEAN PLT VOLUME 7.6 fl (7.5-11.1); PLATELET COUNT 129 K/MM3 (134-434); RDW 17.6 % (11.9-15.9); WHITE BLOOD COUNT 2.5 K/mm3 (4.0-10.0)
[2018-04-26] MEDS ORDERED: METHADONE HCL 10 MG TABLET ONE (10:22)
[2018-04-26] MEDS ORDERED: METHADONE HCL 40 MG DISPERSABLE TABLET ONE (10:23)
[2018-04-26 10:47] LABS: ALBUMIN 3.3 g/dl (3.4-5.0); ALK PHOS 118 U/L (45-117); ANION GAP 9 (8-16); BILIRUBIN,TOTAL 0.8 mg/dL (0.2-1.0); BLOOD UREA NITROGEN 12 mg/dL (7-18); CALCIUM 8.7 mg/dL (8.5-10.1); CHLORIDE 105 mmol/L (98-107); CO2 29 mmol/L (21-32); CREATININE 0.7 mg/dL (0.7-1.3); GLUCOSE,RANDOM 84 mg/dL (74-106); POTASSIUM 3.5 mmol/L (3.5-5.1); SGOT/AST 33 U/L (15-37); SGPT/ALT 26 U/L (12-78); SODIUM 143 mmol/L (136-145); TOT PROT 6.5 g/dl (6.4-8.2)
[2018-04-26] MEDS: METHADONE 80 MG, METHADONE 30 MG PO SCH (10:54)
--- NOTE | 2018-04-26 12:46 | PN ---
[facility] CIWA - CIWA Score Nausea/Vomitin-No Nausea/No Vomiting Muscle Tremors: 3 Anxiety: 4-Mod. Anxious/Guarded Agitation: 4-Moderately Restless Paroxysmal Sweats: 3 Orientation: 2-Disoriented Date<2 days Tacttile Disturbances: 3-Moderate Itch/Numb/Burn Auditory Disturbances: 0-None Visual Disturbances: 0-None Headache: 0-None Present CIWA-Ar Total Score: 19 S Progress Note (SOAP) Subjective: Body Aches, Sweating, Tremors, Anxious. Objective: PATIENT A & O X 2 (UNCERTAIN ABOUT CURRENT DAY / DATE). PATIENT OBSERVED AMBULATING ON UNIT. NO ACUTE DISTRESS. 04/26/18 12:43 Vital Signs Temperature 98.1 F 04/26/18 09:44 Pulse Rate 72 04/26/18 11:00 Respiratory Rate 18 04/26/18 11:00 Blood Pressure 111/78 04/26/18 09:44 O2 Sat by Pulse Oximetry (%) Laboratory Tests 04/25/18 04/26/18 04/26/18 21:00 07:00 07:00 WBC 2.5 L RBC 4.30 Hgb 14.4 Hct 41.7 MCV 96.9 H MCH 33.5 MCHC 34.6 RDW 17.6 H Plt Count 129 L D MPV 7.6 Sodium 143 Potassium 3.5 Chloride 105 Carbon Dioxide 29 Anion Gap 9 BUN 12 Creatinine 0.7 Creat Clearance w eGFR > 60 Random Glucose 84 Calcium 8.7 Total Bilirubin 0.8 AST 33 D ALT 26 D Alkaline Phosphatase 118 H Total Protein 6.5 Albumin 3.3 L Urine Color Straw Urine Appearance Clear Urine pH 6.0 Ur Specific [place] 1.003 Urine Protein Negative Urine Glucose (UA) Negative Urine Ketones Negative Urine Blood Negative Urine Nitrite Negative Urine Bilirubin Negative Urine Urobilinogen Negative Ur Leukocyte Esterase Negative RPR Titer 04/26/18 07:00 WBC RBC Hgb Hct MCV MCH MCHC RDW Plt Count MPV Sodium Potassium Chloride Carbon Dioxide Anion Gap BUN Creatinine Creat Clearance w eGFR Random Glucose Calcium Total Bilirubin AST ALT Alkaline Phosphatase Total Protein Albumin Urine Color Urine Appearance Urine pH Ur Specific [place] Urine Protein Urine Glucose (UA) Urine Ketones Urine Blood Urine Nitrite Urine Bilirubin Urine Urobilinogen Ur Leukocyte Esterase RPR Titer Nonreactive LABS NOTED. PATIENT MONSON HAD LOW WBC LEVELS ON SEVERAL PREVIOUS ADMISSIONS. 04/26/18 12:45 Assessment: 07/24/18 12:43 WITHDRAWAL SYMPTOMS. LEUKOPENIA. THROMBOCYTOPENIA. 04/26/18 12:45 Plan: CONTINUE DETOX. INCREASE DAILY PO FLUID INTAKE.
--- NOTE | 2018-04-26 13:57 | EKG ---
Test Reason : Blood Pressure : / mmHG Vent. Rate : 082 BPM Atrial Rate : 082 BPM P-R Int : 176 ms QRS Dur : 106 ms QT Int : 390 ms P-R-T Axes : 057 002 045 degrees QTc Int : 455 ms NORMAL SINUS RHYTHM INCOMPLETE RIGHT BUNDLE BRANCH BLOCK BORDERLINE ECG WHEN COMPARED WITH ECG OF 05-MAR-2018 22:16, NO SIGNIFICANT CHANGE WAS FOUND Confirmed by Bryce Romano MD ([id number]) on 04/26/2018 1:57:16 PM Referred By: Confirmed By:Bryce Romano MD
--- NOTE | 2018-04-26 18:10 | CONSULT ---
[facility] Psychiatric Consult - Data Date of interview: 04/26/18 Admission source: [facility] Identifying data: Readmission to [facility] for this 42 y/o male seeking detox treatment on for alcohol and xanax dependence.Patient is single without dependents,homeless,unemployed and supported on Public Assistance. Substance Abuse History: Confirmed by the patient in this session.Smoking history: Current every day smoker. Have you smoked in the past 12 months: Yes. Aproximately how many cigarettes per day: 20. Cigars Per Day: 0. Hx Chewing Tobacco Use: No. Initiated information on smoking cessation: Yes. 'Breaking Loose' booklet given: 04/25/18. - Substance & Tx. History. Hx Alcohol Use: Yes. Hx Substance Use: Yes. Substance Use Type: Alcohol, Tranquilizers. Hx Substance Use Treatment: Yes ([facility] 03/05/18 -03/09/18 ). - Substances Abused. Alcohol. Route: Oral. Frequency: Daily. Amount used: 2-3 pints rum. Age of first use: 32. Date of Last Use: 04/25/18. Alprazolam (Xanax). Route: Oral. Frequency: Daily. Amount used: 4-6mg. Age of first use: 25. Date of Last Use: 04/24/18 Medical History: Anemia and a history of witdrawal-related seizures. Psychiatric History: Patient denies history of psychiatric hospitalizations.Mr Cruz indicates that he has been diagnosed, in the past, with MDD and ADHD.Past treatment with prozac + wellbutrin.Patient is no longer in active OPD care.Dropped out of treatment several months ago.Known antecedent of two suicide attempts (overdoses with medications + heroin at age 27 and 34).On methadone maintenance (110 mg/day) at the [facility] program in [facility]. Physical/Sexual Abuse/Trauma History: Patient denies. Additional Comment: Urine Drug Screen Results: OPI-Opiates, BZO-Benzodiazepines , MTD-Methadone.Noted. Mental Status Exam - Mental Status Exam Alert and Oriented to: Time, Place, Person Cognitive Function: Good Patient Appearance: Disheveled Mood: Withdrawn Affect: Mood Congruent Patient Behavior: Fatigued, Cooperative Speech Pattern: Clear, Appropriate Voice Loudness: Normal Thought Process: Goal Oriented Thought Disorder: Not Present Hallucinations: Denies Suicidal Ideation: Denies Homicidal Ideation: Denies Insight/Judgement: Poor Sleep: Poorly, Difficulty falling asleep Appetite: Good Muscle strength/Tone: Normal Gait/Station: Normal Psychiatric Findings - Problem List ([place] 1, 2,3) (1) Alcohol dependence with uncomplicated withdrawal Current Visit: Yes Status: Acute (2) Sedative, hypnotic or anxiolytic dependence with withdrawal, uncomplicated Current Visit: Yes Status: Acute (3) Opioid dependence on agonist therapy Current Visit: Yes Status: Acute Comment: on Methadone 110 mg, dose pending verification (4) Nicotine dependence Current Visit: Yes Status: Acute Qualifiers: Nicotine product type: cigarettes Substance use status: in withdrawal Qualified Code(s): F17.213 - Nicotine dependence, cigarettes, with withdrawal (5) Drug-induced mood disorder Current Visit: Yes Status: Acute (6) Insomnia Current Visit: Yes Status: Acute - Initial Treatment Plan Initial Treatment Plan: Psychoeducation.Sleep hygiene.Detoxification.Seroquel 50 mg po hs (to address insomnia, at patient's request).Consent (verbal) given.Side effects/benefits discussed with the patient.Observation.
[2018-04-26] MEDS ORDERED: QUEtiapine FUMARATE 50 MG TABLET PO SCH (22:00)
[2018-04-26] MEDS: THIAMINE HCL 100 MG TABLET (FP) PO SCH (22:47)
[2018-04-27] MEDS ORDERED: METHADONE HCL 10 MG TABLET ONE (04:00)
[2018-04-27] MEDS ORDERED: METHADONE HCL 40 MG DISPERSABLE TABLET ONE (04:01)
[2018-04-27] MEDS: diazePAM 5 MG TABLET PO PRN ×3 (05:32→18:20)
[2018-04-27] MEDS: METHADONE 80 MG, METHADONE 30 MG PO SCH (05:32)
[2018-04-27] MEDS: PRENATAL VITAMINS W/ FOLIC ACID TABLET (FP) PO SCH (10:09)
[2018-04-27] MEDS: NICOTINE 21 MG/24 HOURS TOPICAL PATCH TD SCH (10:09)
[2018-04-27] MEDS: diazePAM 5 MG TABLET PO SCH ×2 (10:09→22:57)
--- NOTE | 2018-04-27 12:36 | PN ---
S CIWA - CIWA Score Nausea/Vomitin-No Nausea/No Vomiting Muscle Tremors: 3 Anxiety: 4-Mod. Anxious/Guarded Agitation: 0-Normal Activity Paroxysmal Sweats: 3 Orientation: 0-Oriented Tacttile Disturbances: 2-Mild Itch/Numbness/Burn Auditory Disturbances: 0-None Visual Disturbances: 2-Mild Sensitivity Headache: 0-None Present CIWA-Ar Total Score: 14 BHS Progress Note (SOAP) Subjective: Body Aches, Sweating, Tremors, Anxious. Objective: PATIENT A & O X 3. NO ACUTE DISTRESS. 04/27/18 12:35 Vital Signs Temperature 97.1 F L 04/27/18 09:23 Pulse Rate 45 L 04/27/18 09:23 Respiratory Rate 20 04/27/18 09:23 Blood Pressure 102/64 04/27/18 09:23 O2 Sat by Pulse Oximetry (%) Laboratory Tests 04/25/18 04/26/18 04/26/18 21:00 07:00 07:00 WBC 2.5 L RBC 4.30 Hgb 14.4 Hct 41.7 MCV 96.9 H MCH 33.5 MCHC 34.6 RDW 17.6 H Plt Count 129 L D MPV 7.6 Sodium 143 Potassium 3.5 Chloride 105 Carbon Dioxide 29 Anion Gap 9 BUN 12 Creatinine 0.7 Creat Clearance w eGFR > 60 Random Glucose 84 Calcium 8.7 Total Bilirubin 0.8 AST 33 D ALT 26 D Alkaline Phosphatase 118 H Total Protein 6.5 Albumin 3.3 L Urine Color Straw Urine Appearance Clear Urine pH 6.0 Ur Specific [place] 1.003 Urine Protein Negative Urine Glucose (UA) Negative Urine Ketones Negative Urine Blood Negative Urine Nitrite Negative Urine Bilirubin Negative Urine Urobilinogen Negative Ur Leukocyte Esterase Negative RPR Titer 04/26/18 07:00 WBC RBC Hgb Hct MCV MCH MCHC RDW Plt Count MPV Sodium Potassium Chloride Carbon Dioxide Anion Gap BUN Creatinine Creat Clearance w eGFR Random Glucose Calcium Total Bilirubin AST ALT Alkaline Phosphatase Total Protein Albumin Urine Color Urine Appearance Urine pH Ur Specific [place] Urine Protein Urine Glucose (UA) Urine Ketones Urine Blood Urine Nitrite Urine Bilirubin Urine Urobilinogen Ur Leukocyte Esterase RPR Titer Nonreactive LABS NOTED. Assessment: 04/27/18 12:35 WITHDRAWAL SYMPTOMS. LEUKOPENIA. THROMBOCYTOPENIA. 04/27/18 12:35 Plan: CONTINUE DETOX. INCREASE DAILY PO FLUID INTAKE.
--- NOTE | 2018-04-27 18:39 | PN ---
S Progress Note Note: Psychiatry Attending's note : Seroquel discontinued. In view of bradycardia trend. Will observe.
[2018-04-27] MEDS: THIAMINE HCL 100 MG TABLET (FP) PO SCH (22:57)
[2018-04-28] MEDS ORDERED: METHADONE HCL 10 MG TABLET ONE (03:54)
[2018-04-28] MEDS ORDERED: METHADONE HCL 40 MG DISPERSABLE TABLET ONE (03:55)
[2018-04-28] MEDS: diazePAM 5 MG TABLET PO PRN ×3 (05:26→17:00)
[2018-04-28] MEDS: METHADONE 80 MG, METHADONE 30 MG PO SCH (05:26)
[2018-04-28] MEDS: PRENATAL VITAMINS W/ FOLIC ACID TABLET (FP) PO SCH (10:15)
[2018-04-28] MEDS: diazePAM 5 MG TABLET PO SCH ×2 (10:15→22:18)
[2018-04-28] MEDS: NICOTINE 21 MG/24 HOURS TOPICAL PATCH TD SCH (10:15)
--- NOTE | 2018-04-28 16:02 | PN ---
BHS Progress Note (SOAP) Subjective: Sweating, Tremors, Fatigue, Anxious. Objective: PATIENT A & O X 3, OBSERVED AMBULATING ON UNIT. NO ACUTE DISTRESS. 04/28/18 16:01 Vital Signs Temperature 97.5 F L 04/28/18 13:09 Pulse Rate 60 04/28/18 13:09 Respiratory Rate 18 04/28/18 13:09 Blood Pressure 125/80 04/28/18 13:09 O2 Sat by Pulse Oximetry (%) Laboratory Tests 04/25/18 04/26/18 04/26/18 21:00 07:00 07:00 WBC 2.5 L RBC 4.30 Hgb 14.4 Hct 41.7 MCV 96.9 H MCH 33.5 MCHC 34.6 RDW 17.6 H Plt Count 129 L D MPV 7.6 Sodium 143 Potassium 3.5 Chloride 105 Carbon Dioxide 29 Anion Gap 9 BUN 12 Creatinine 0.7 Creat Clearance w eGFR > 60 Random Glucose 84 Calcium 8.7 Total Bilirubin 0.8 AST 33 D ALT 26 D Alkaline Phosphatase 118 H Total Protein 6.5 Albumin 3.3 L Urine Color Straw Urine Appearance Clear Urine pH 6.0 Ur Specific [place] 1.003 Urine Protein Negative Urine Glucose (UA) Negative Urine Ketones Negative Urine Blood Negative Urine Nitrite Negative Urine Bilirubin Negative Urine Urobilinogen Negative Ur Leukocyte Esterase Negative RPR Titer 04/26/18 07:00 WBC RBC Hgb Hct MCV MCH MCHC RDW Plt Count MPV Sodium Potassium Chloride Carbon Dioxide Anion Gap BUN Creatinine Creat Clearance w eGFR Random Glucose Calcium Total Bilirubin AST ALT Alkaline Phosphatase Total Protein Albumin Urine Color Urine Appearance Urine pH Ur Specific [place] Urine Protein Urine Glucose (UA) Urine Ketones Urine Blood Urine Nitrite Urine Bilirubin Urine Urobilinogen Ur Leukocyte Esterase RPR Titer Nonreactive LABS NOTED. Assessment: 04/28/18 16:01 WITHDRAWAL SYMPTOMS. LEUKOPENIA. THROMBOCYTOPENIA. 04/28/18 16:02 Plan: CONTINUE DETOX. INCREASE DAILY PO FLUID INTAKE. PATIENT SCHEDULED FOR D/C TOMORROW.
[2018-04-28] MEDS: THIAMINE HCL 100 MG TABLET (FP) PO SCH (22:17)
[2018-04-29] MEDS ORDERED: METHADONE HCL 10 MG TABLET ONE (04:16)
[2018-04-29] MEDS ORDERED: METHADONE HCL 40 MG DISPERSABLE TABLET ONE (04:17)
[2018-04-29] MEDS: METHADONE 80 MG, METHADONE 30 MG PO SCH (05:22)
[2018-04-29 06:24] VITALS: TEMP 97.2
[2018-04-29 09:19] VITALS: BP 119/80; PULSE 99
[2018-04-29] MEDS ORDERED: diazePAM 5 MG TABLET PO SCH (10:00)
--- NOTE | 2018-04-29 12:13 | PN ---
BHS Progress Note (SOAP) Subjective: Patient denies current Detox symptoms and reports that he feels well overall. Objective: PATIENT A & O X 3, OBSERVED AMBULATING ON UNIT. NO ACUTE DISTRESS. 04/29/18 12:12 Vital Signs Temperature 97.2 F L 04/29/18 09:18 Pulse Rate 99 H 04/29/18 09:18 Respiratory Rate 18 04/29/18 09:18 Blood Pressure 119/80 04/29/18 09:18 O2 Sat by Pulse Oximetry (%) Laboratory Tests 04/25/18 04/26/18 04/26/18 21:00 07:00 07:00 WBC 2.5 L RBC 4.30 Hgb 14.4 Hct 41.7 MCV 96.9 H MCH 33.5 MCHC 34.6 RDW 17.6 H Plt Count 129 L D MPV 7.6 Sodium 143 Potassium 3.5 Chloride 105 Carbon Dioxide 29 Anion Gap 9 BUN 12 Creatinine 0.7 Creat Clearance w eGFR > 60 Random Glucose 84 Calcium 8.7 Total Bilirubin 0.8 AST 33 D ALT 26 D Alkaline Phosphatase 118 H Total Protein 6.5 Albumin 3.3 L Urine Color Straw Urine Appearance Clear Urine pH 6.0 Ur Specific [place] 1.003 Urine Protein Negative Urine Glucose (UA) Negative Urine Ketones Negative Urine Blood Negative Urine Nitrite Negative Urine Bilirubin Negative Urine Urobilinogen Negative Ur Leukocyte Esterase Negative RPR Titer 04/26/18 07:00 WBC RBC Hgb Hct MCV MCH MCHC RDW Plt Count MPV Sodium Potassium Chloride Carbon Dioxide Anion Gap BUN Creatinine Creat Clearance w eGFR Random Glucose Calcium Total Bilirubin AST ALT Alkaline Phosphatase Total Protein Albumin Urine Color Urine Appearance Urine pH Ur Specific [place] Urine Protein Urine Glucose (UA) Urine Ketones Urine Blood Urine Nitrite Urine Bilirubin Urine Urobilinogen Ur Leukocyte Esterase RPR Titer Nonreactive LABS NOTED. Assessment: 04/29/18 12:12 COMPLETION OF DETOX REGIMEN. 04/29/18 12:12 Plan: PATIENT SCHEDULED FOR DISCHARGE FROM DETOX UNIT TODAY.
--- NOTE | 2018-04-29 12:19 | DS ---
[facility] Detox Discharge Summary Admission Date: 04/25/18 Discharge Date: 04/29/18 - History Present History: Alcohol Dependence, Opioid Dependence, Sedative Dependence, MMTP Additional Comments: PATIENT GOING TO [facility] ([facility]) FOR AFTERCARE. PATIENT WAS DISCHARGED FROM DETOX UNIT IN STABLE MEDICAL CONDITION. Pertinent Past History: History of Seizure (due to Withdrawal), MMTP, History of Heart Murmur, Nicotine Dependence, History of Anemia, History of Depression, Insomnia. - Physical Exam Results Vital Signs: Vital Signs Temperature 97.2 F L 04/29/18 09:18 Pulse Rate 99 H 04/29/18 09:18 Respiratory Rate 18 04/29/18 09:18 Blood Pressure 119/80 04/29/18 09:18 O2 Sat by Pulse Oximetry (%) Pertinent Admission Physical Exam Findings: WITHDRAWAL SYMPTOMS. Laboratory Tests 04/25/18 04/26/18 04/26/18 21:00 07:00 07:00 WBC 2.5 L RBC 4.30 Hgb 14.4 Hct 41.7 MCV 96.9 H MCH 33.5 MCHC 34.6 RDW 17.6 H Plt Count 129 L D MPV 7.6 Sodium 143 Potassium 3.5 Chloride 105 Carbon Dioxide 29 Anion Gap 9 BUN 12 Creatinine 0.7 Creat Clearance w eGFR > 60 Random Glucose 84 Calcium 8.7 Total Bilirubin 0.8 AST 33 D ALT 26 D Alkaline Phosphatase 118 H Total Protein 6.5 Albumin 3.3 L Urine Color Straw Urine Appearance Clear Urine pH 6.0 Ur Specific [place] 1.003 Urine Protein Negative Urine Glucose (UA) Negative Urine Ketones Negative Urine Blood Negative Urine Nitrite Negative Urine Bilirubin Negative Urine Urobilinogen Negative Ur Leukocyte Esterase Negative RPR Titer 04/26/18 07:00 WBC RBC Hgb Hct MCV MCH MCHC RDW Plt Count MPV Sodium Potassium Chloride Carbon Dioxide Anion Gap BUN Creatinine Creat Clearance w eGFR Random Glucose Calcium Total Bilirubin AST ALT Alkaline Phosphatase Total Protein Albumin Urine Color Urine Appearance Urine pH Ur Specific [place] Urine Protein Urine Glucose (UA) Urine Ketones Urine Blood Urine Nitrite Urine Bilirubin Urine Urobilinogen Ur Leukocyte Esterase RPR Titer Nonreactive LABS NOTED. - Treatment Hospital Course: Detox Protocol Followed, Detoxed Safely, Responded well, Discharged Condition Good, Rehab Referral Accepted Patient has Accepted a Rehab Referral to: [facility] ([place], [place] - Medication Discharge Medications: Ambulatory Orders NK [No Known Home Medication] 08/21/14 - Diagnosis (1) Alcohol dependence with uncomplicated withdrawal Status: Acute (2) Nicotine dependence Status: Acute Qualifiers: Nicotine product type: cigarettes Substance use status: in withdrawal Qualified Code(s): F17.213 - Nicotine dependence, cigarettes, with withdrawal (3) Sedative, hypnotic or anxiolytic dependence with withdrawal, uncomplicated Status: Acute (4) Heart murmur Status: Chronic (5) Opioid dependence on agonist therapy Status: Acute (6) Insomnia Status: Acute Qualifiers: Insomnia type: unspecified Qualified Code(s): G47.00 - Insomnia, unspecified (7) Drug-induced mood disorder Status: Acute - AMA Did Patient Leave Against Medical Advice: No
== END 2018-04-29 09:26 | disposition home or self-care (01) | DRG 773 ==
LOC: YASAS 14:02 → Y3N 17:46
PROVIDERS: ADMIT Surgery; ATTEND Surgery
PROC: HZ2ZZZZ Detoxification Services for Substance Abuse Treatment (ICD-10-PCS; principal; 2018-04-25)
DX: F10.230 Alcohol dependence with withdrawal, uncomplicated (principal); F13.230 Sedative, hypnotic or anxiolytic dependence with withdrawal, uncomplicated; F11.20 Opioid dependence, uncomplicated; F17.210 Nicotine dependence, cigarettes, uncomplicated; F19.24 Other psychoactive substance dependence with psychoactive substance-induced mood disorder; F32.9 Major depressive disorder, single episode, unspecified; G40.509 Epileptic seizures related to external causes, not intractable, without status epilepticus; G47.00 Insomnia, unspecified; R01.1 Cardiac murmur, unspecified; Z91.5 Personal history of self-harm
CPT/HCPCS: 36415; 80053; 81003; 85027; 86593; 93005; 93010